=== PATIENT | male | born 1940 | race Caucasian/White ===

== ENCOUNTER → 2019-05-28 15:51 | Outpatient (CLI) | payer MEDICARE, OTHER, SELFPAY | PROVIDERS: Referring Provider Otolaryngology Otolaryngology/Facial Plastic Surgery; Visit Provider Otolaryngology Otolaryngology/Facial Plastic Surgery | DX: J02.9 Acute pharyngitis, unspecified (principal) | CPT/HCPCS: 87070; 87077; 87186 ==

== ENCOUNTER → 2019-05-31 08:15 | Outpatient (CLI) | payer MEDICARE, OTHER, SELFPAY ==
--- NOTE | 2019-05-31 08:23 | RAD_ITS ---
STUDY: X-RAY - ESOPHAGUS (BARIUM SWALLOW) WITH FLUOROSCOPY REASON FOR EXAM: Male, 79 years old. Right-sided throat irritation. TECHNIQUE: 12 view(s) of the esophagus were obtained following swallowing of barium. FLUOROSCOPY TIME (if supplied): (0:25) minutes/seconds COMPARISON: None. FINDINGS: There is no demonstrated esophageal foreign body. There is no demonstrated stricture or mucosal abnormality. Normal gastroesophageal junction, without a demonstrated hiatal hernia. The patient ingested a 12 mm tablet of barium without any difficulty. There is atherosclerotic tortuosity of the aortic arch and descending thoracic aorta. Normal visualized pulmonary parenchyma. Normal visualized osseous structures of the thorax. RAD/Esophagus Only IMPRESSION: Normal plain film x-ray examination (barium swallow) of the esophagus. Electronically Signed: Dereck Cruz, at 10:27 EST , Service support ,
== END ==
PROVIDERS: Family Provider Internal Medicine; PCP Internal Medicine; Referring Provider Otolaryngology Otolaryngology/Facial Plastic Surgery; Visit Provider Otolaryngology Otolaryngology/Facial Plastic Surgery
DX: R13.10 Dysphagia, unspecified (principal)
CPT/HCPCS: 74220

== ENCOUNTER → 2020-07-30 07:00 | Outpatient (CLI) | payer MEDICARE, OTHER, SELFPAY ==
[2020-07-23 10:30] VITALS: BMI 26.0
--- NOTE | 2020-07-30 07:04 | ECHOD_ITS ---
Reason For Study: SOB Procedure This was a 2D Doppler, Color Flow transthoracic echocardiogram. Myocardial strain analysis was performed in this exam to aid in the assessment of cardiac function. Exam performed in department. Left Ventricle Normal LV size. Left ventricular systolic function is normal. The estimated ejection fraction is 60 %. Stage 1 diastolic dysfunction. No regional wall motion abnormalities noted. Right Ventricle Normal RV size. Normal systolic function. Atria Normal left atrium. Normal right atrium. Mitral Valve Normal mitral valve. Mild (1+) mitral valve insufficiency. Tricuspid Valve Normal tricuspid valve. Mild tricuspid valve insufficiency. Pulmonary artery systolic pressure is 30 mmHg. Aortic Valve Trisinus/trileaflet aortic valve. Mild focal aortic valve calcification. Pulmonic Valve Normal pulmonic valve. Trivial pulmonic valve insufficiency. Great Vessels Normal aortic root. The pulmonary artery is normal size. Normal inferior vena cava. Pericardium/Pleural No pericardial effusion. MMode/2D Measurements & Calculations LVIDd: 4.1 cm IVSd: 1.0 cm Ao root diam: 3.6 cm LVIDs: 2.8 cm LVPWd: 1.1 cm RVDd: 3.1 cm FS: 31.9 % LAV(MOD-bp): 75.6 ml EDV(MOD-sp4): 124.1 ml SV(MOD-sp4): 68.8 ml LAV(MOD-bp) Indexed: 39.2 ml/m2 ESV(MOD-sp4): 55.3 ml LAV(MOD-sp2): 77.6 ml EF(MOD-sp4): 55.4 % LAV(MOD-sp4): 73.6 ml LA dimension(2D): 4.1 cm LA A4 area: 23.0 cm2 RA A4 area: 20.6 cm2 Doppler Measurements & Calculations MV E max zack: 62.2 cm/sec Lat Peak E' Zack: 7.2 cm/sec Med Peak E' Zack: 8.5 cm/sec MV A max zack: 87.1 cm/sec E/E' lat: 8.6 E/E' med: 7.3 MV E/A: 0.71 Ao V2 max: 177.6 cm/sec LV V1 max: 104.3 cm/sec PA V2 max: 101.9 cm/sec Ao max P.6 mmHg LV V1 max P.4 mmHg TR max zack: 261.6 cm/sec TR max P.4 mmHg Interpretation Summary Normal LV size. Left ventricular systolic function is normal. The estimated ejection fraction is 60 %. Stage 1 diastolic dysfunction. The global longitudinal strain is normal. The global longitudinal strain = -20.3 % (normal). Ordering Physician: Nicanor Mojica Referring Physician: Danay Silva M.D. Performed By: Marlene Allen RDCS
--- NOTE | 2020-07-30 16:49 | STRESSREP ---
Stress Test Report Exercise myocardial perfusion stress test. 80-year-old man with a history of hypertension, hyperlipidemia and premature ventricular complexes. Stress protocol: Resting KG demonstrates normal sinus rhythm with a rate of 69 bpm normal intervals are noted resting blood pressure is 150/76 mmHg. The patient exercised according to regular Mahin protocol for a total duration of 4 minutes and 15 seconds. The maximum heart rate attained was 136 bpm which was 95% of max impacted heart rate the maximum workload was 6.1 metabolic equivalents. At rest there were no ST or T wave changes noted suggest ischemia at peak exercise upsloping ST changes were noted with no meet the criteria for ischemia. The test was terminated due to lightheadedness. The peak blood pressure was 180/90 mmHg. Myocardial perfusion protocol. 11.2 mCi of technetium 99m sestamibi was injected at rest. The patient exercised according to regular Mahin protocol for 4 minutes and 15 seconds and at peak exercise 33.8 mCi of technetium 99m sestamibi was injected stress images were obtained stress and rest images were reconstructed and compared in the short axis vertical long horizontal long axis. Gated images were also obtained Perfusion SPECT analysis: Review of the stress images demonstrate normal uptake of tracer noted in all areas of the myocardium the resting images similarly demonstrate normal uptake of tracer noted in all areas of the myocardium. There is some diaphragmatic attenuation present. The above is not suggestive of an infarct. Gated SPECT analysis: The gated ejection fraction is 57% Conclusion: Exercise myocardial perfusion stress test with no evidence of ischemia at a low to moderate workload. No obvious ischemia noted.
== END ==
PROVIDERS: PCP Internal Medicine; Referring Provider Internal Medicine Cardiovascular Disease; Visit Provider Internal Medicine Cardiovascular Disease
DX: R06.00 Dyspnea, unspecified (principal); R06.02 Shortness of breath; R00.2 Palpitations; E78.5 Hyperlipidemia, unspecified
CPT/HCPCS: 78452; 93017; 93225; 93226; 93306; A9500; A4216

== ENCOUNTER → 2020-09-22 15:59 | Outpatient (CLI) | payer MEDICARE, OTHER, SELFPAY ==
[2020-09-10 11:14] VITALS: BMI 25.9
--- NOTE | 2020-09-22 16:10 | MRI_ITS ---
STUDY: MRI BRAIN WITH AND WITHOUT CONTRAST (ATTENTION INTERNAL AUDITORY CANALS - I.A.C.''s) REASON FOR EXAM: Male, 80 years old. LEFT EAR HEARING LOSS ; ATTN IAC TECHNIQUE: Standardized multiplanar fat and water weighted pulse sequences were obtained. 16ml IV Dotarem was administered for the contrast portion of the examination. COMPARISON: None. FINDINGS: Normal bilateral temporal bones. Normal bilateral internal auditory canals. There is no demonstrated intracanalicular or cisternal vestibular schwannoma (acoustic neuroma). There is no enhancement of the bilateral VIIth or VIIIth cranial nerves. Normal bilateral cochlea, vestibules and semicircular canals. There is mild cerebral atrophy with widening of the extra-axial spaces and ventricular dilatation. Normal white matter tracts of the supratentorial brain. Normal bilateral basal ganglia. Normal thalami. Normal flow voids within the major intracranial circulation suggesting patency by spin echo criteria. Normal venous enhancement. There is no enhancing intra-axial or extra-axial abnormality. There is no extra-axial fluid accumulation. Normal sella turcica, pituitary gland, infundibular stalk, optic chiasm and hypothalamus. Normal tectal plate and pineal gland. Normal midbrain, anita and medulla. Normal cerebellum. MRI/Brain W/WO Contrast IMPRESSION: There is no demonstrated intracanalicular or cisternal vestibular schwannoma (acoustic neuroma). Electronically Signed: Linda Leo MD at 15:50 EDT Tel , Service support ,
[2020-09-22 16:26] LABS: CREATININE FINGERSTICK 0.8 mg/dL (0.70-1.30); EGFR FINGERSTICK > 60.0000 mL/min (>60)
== END ==
PROVIDERS: PCP Internal Medicine; Referring Provider Otolaryngology; Visit Provider Otolaryngology
DX: H91.92 Unspecified hearing loss, left ear (principal)
CPT/HCPCS: 70553; A9575

== ENCOUNTER → 2020-12-10 06:28 | Outpatient (CLI) | payer MEDICARE, OTHER, SELFPAY ==
[2020-12-02 08:17] VITALS: BMI 25.5
--- NOTE | 2020-12-10 06:32 | MRI_ITS ---
STUDY: MRI LUMBAR SPINE WITH AND WITHOUT CONTRAST REASON FOR EXAM: Male, 80 years old. pain, h/o lumbar surgery TECHNIQUE: Standardized fat and water weighted pulse sequences were obtained in the sagittal and axial planes. IV 15cc dotarem was administered for the contrast portion of the examination. COMPARISON: X-ray 12/01/2020 FINDINGS: T12-L1: Normal endplates. Normal disc height, hydration and morphology. Normal bilateral facet joints. Normal central canal and bilateral lateral recesses. Normal bilateral intervertebral neural foramina. Normal lumbar lordosis. There is no substantial scoliosis. Normal conus medullaris that terminates at the T12/L1. Chronic mild compression fracture of L3 with concavity the superior endplate but no retropulsion into the spinal canal. L1-2: Normal endplates. Normal disc height, hydration and morphology. Normal bilateral facet joints. Normal central canal and bilateral lateral recesses. Normal bilateral intervertebral neural foramina. L2-3: Mild bilateral facet hypertrophy and moderate ligament flavum hypertrophy. Mild bilobed disc protrusion produces moderate spinal stenosis with moderate bilateral lateral recess stenosis with abutment of the L3 nerve roots and mild bilateral neural foraminal stenosis. L3-4: Mild bilateral facet hypertrophy and moderate ligament flavum hypertrophy. Moderate bilobed disc protrusion produces a moderate spinal stenosis with moderate bilateral lateral recess stenosis with abutment of the L4 nerve roots bilaterally and moderate bilateral neural foraminal stenosis. L4-5: Suspect right laminotomy. Mild bilateral facet hypertrophy and moderate ligament flavum hypertrophy. Mild broad disc protrusion with a central annular tear produces mild spinal stenosis with mild bilateral lateral recess stenosis and mild bilateral neural foraminal stenosis. L5-S1: Mild bilateral facet hypertrophy and ligament flavum hypertrophy. Mild broad disc protrusion produces moderate spinal stenosis with moderate bilateral lateral recess stenosis with abutment of the S1 nerve roots bilaterally and moderate right neural foraminal stenosis and mild left neural foraminal stenosis. Normal visualized sacral ala. Normal visualized paraspinous soft tissue structures. There is no demonstrated abnormal enhancement. MRI/Spine Lumbar W/WO Contrast IMPRESSION: Multilevel degenerative changes, as described above. Electronically Signed: Elbert Roca MD at 9:29 EDT Tel , Service support ,
[2020-12-10 07:00] LABS: CREATININE FINGERSTICK < 0.6 mg/dL (0.70-1.30); EGFR FINGERSTICK > 60.0000 mL/min (>60)
== END ==
PROVIDERS: PCP Internal Medicine; Referring Provider Orthopaedic Surgery; Visit Provider Orthopaedic Surgery
DX: Z01.812 Encounter for preprocedural laboratory examination (principal); M54.17 Radiculopathy, lumbosacral region; Z98.890 Other specified postprocedural states; S32.030A Wedge compression fracture of third lumbar vertebra, initial encounter for closed fracture
CPT/HCPCS: 72158; A9575

== ENCOUNTER 2021-04-02 11:00 | Outpatient (RCR) | payer MEDICARE, OTHER, SELFPAY ==
--- NOTE | 2021-03-04 13:57 | HP.PTEVAL_ITS ---
Patient's Visit Information BRE QUIGLEY is a 81 year old M referred to Physical Therapy by Dr. Ren Boudreaux DO with a diagnosis of LUMBOSACRAL SPRAIN/STRAIN. Date of Evaluation: 03/04/21 Physical Therapist: Janeth Richardson PT, Cert MDT - Visit Plan Frequency: 2-3x /Week Duration: 4-6 Weeks Plan: CONSIDER US TO LOW BACK. POSTURE CORRECTION/STRENGTHENING, INSTRUCTION IN APPROPRIATE BODY MECHANICS AND ACTIVITY MODIFICATIONS. DLS STARTING WITH A NEUTRAL SPINE PROGRESSING ROM TOLERATED. KYLE LE ROM, STRETCHING AND STRENGTHENING. HEP INSTRUCTION. - Subjective Work/Leisure: RETIRED. Disability: NO. Present symptoms: KYLE LOW BACK PAIN. MY WHOLE BACK HURTS SOMETIMES. RIGHT THIGH, LEG, AND FOOT NUMBNESS AND TINGLING. NO L LE SX'S. Present since: 51 YEARS AGO. Pain Scale: WORST 8/10, LEAST 0/10. Currently: 0/10. 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 EVENTUALLY IT HEALED ITSELF TO A POINT BUT SOME SX'S HAVE BEEN THERE EVER SINCE THEN. JUST INTERMITTENT LBP UNTIL 2009. WENT TO PT IN 2009 FOR 2-3 WKS - WAS DOING A HOME EX WHEN HE SUDDENLY GOT A SEVERE SHARP PAIN DOWN HIS LEG INTO HIS KNEE AND INTO HIS FOOT. MRI REVEALED A LUMBAR HNP. Symptoms at onset: LOW BACK PAIN. [address] RIVAS AND IT HELPED BUT WASN'T A 100% CURE. INTERMITTENT RIGHT KNEE PAIN SINCE THEN. GETS SHARP KNEE PAIN AT TIMES. ABOUT 5 MONTHS AGO FOR 1-2 WEEKS DID A LOT OF YARD WORK AND DIDN'T REALIZE HE WAS OVER-STRESSING HIS BODY. ONE MORNING HE WOKE UP AND COULDN'T GET OUT OF BED AND HAD MUSCLE SPASMS IN BACK AND CHEST AND ALL OVER - VERY SEVERE PAIN - COULDN'T GET OUT OF BED. WAS PRESCRIBED M.RELAXERS AND PREDNISONE. HAD TO SLEEP IN RECLINER. THE PAIN HAS GOT A LITTLE BETTER. Worse: ACTIVITY. EVEN GENTLY ACTIVITY PROVOKES ACHING THAT CAN BECOME SEVERE. STATES THAT IF HE DOESN'T SIT DOWN IT BECOMES SEVERE QUICKLY. Better: LYING DOWN. SITTING DOWN. Disturbed sleep: SOMET IMES - I FIND MYSELF TOSSING AND TURNING. Treatment this episode: PREDNISONE, M. RELAXER, MALOXACAM. Coughing/sneezing/straining: NEGATIVE. Gait: IT IS GETTING MUCH BETTER. STATES HE INITIALLY COULDN'T WALK 100 FEET ABOUT 5 MONTHS AGO BUT NOW CAN SOMETIMES WALK 1.5 TO 2 MILES A COUPLE TIMES A WEEK. STATES HIS WALKING POSTURE IS GETTING BACK TO CLOSE TO NORMAL. STATES HE STILL CAN'T WALK FAST HE WAS BEFORE THIS FLARE UP. Difficulty initiating urinatin: NO. Accidents: NO. Unexplained weight loss: NO. Imaging: RECENT X-RAYS AND MRI OF LOW BACK - SEE [facility] EMR - REVIEWED BY THIS PT. RAD/Lumbar Spine 2 or 3 Views. IMPRESSION: 1. Moderate compression fracture of L3 which may be acute, subacute, or. chronic. Clinical correlation and MRI may be useful. 2. Mild dextroscoliosis with degenerative disc disease. . Electronically Signed: Elbert Roca MD. at 9:21 EDT. FINDINGS: T12-L1: Normal endplates. Normal disc height, hydration and morphology. Normal bilateral facet joints. Normal central canal and bilateral lateral. recesses. Normal bilateral intervertebral neural foramina. Normal lumbar lordosis. There is no substantial scoliosis. Normal conus. medullaris that terminates at the T12/L1. Chronic mild compression. fracture of L3 with concavity the superior endplate but no retropulsion. into the spinal canal. L 1-2: Normal endplates. Normal disc height, hydration and morphology. Normal bilateral facet joints. Normal central canal and bilateral lateral. recesses. Normal bilateral intervertebral neural foramina. L2-3: Mild bilateral facet hypertrophy and moderate ligament flavum. hypertrophy. Mild bilobed disc protrusion produces moderate spinal. stenosis with moderate bilateral lateral recess stenosis with abutment of. the L3 nerve roots and mild bilateral neural foraminal stenosis. L3-4: Mild bilateral facet hypertrophy and moderate ligament flavum. hypertrophy. Moderate bilobed disc protrusion produces a moderate spinal. stenosis with moderate bilateral lateral recess stenosis with abutment of. the L4 nerve roots bilaterally and moderate bilateral neural foraminal. stenosis. L4-5: Suspect right laminotomy. Mild bilateral facet hypertrophy and. moderate ligament flavum hypertrophy. Mild broad disc protrusion with a. central annular tear produces mild spinal stenosis with mild bilateral. lateral recess stenosis and mild bilateral neural foraminal stenosis. L5-S1: Mild bilateral facet hypertrophy and ligament flavum hypertrophy. Mild broad disc protrusion produces moderate spinal stenosis with moderate. bilateral lateral recess stenosis with abutment of the S1 nerve roots. bilaterally and moderate right neural foraminal stenosis and mild left. neural foraminal stenosis. Normal visualized sacral ala. Normal visualized paraspinous soft tissue structures. There is no demonstrated abnormal enhancement. . MRI/Spine Lumbar W/WO Contrast. IMPRESSION: Multilevel degenerative changes, as described above. . Electronically Signed: Elbert Roca MD. at 9:[address] IAN BOUDREAUX TOLD HIM HE DID NOT SEE ANYTHING OPERABLE ON HIS MRI. PMH/Recent major surgery: HTN, EYE PROBLEMS. OTHER: PATIENT REPORTS THAT IT IS IMPORTANT TO NOTE THAT HE HAD A RE-OCCURANCE OF THE SAME RIGHT KNEE AND LE SX'S WITH THIS FLARE UP THAT HE HAD BEFORE HIS BACK SURGERY IN 2009. CHIEF COMPLAINT AT HIS POINT IS LBP THAT IS EXTREMELY LIMITING HIS ACTIVITY. STATES HE CAN LIVE WITH THE LEG PAIN. - Objective Sitting/Standing Posture: POOR. INCREASED TRUNK FLEXION. RIGHT SHLD LEVEL HIGHER THAN LEFT. LEFT ILIAC CREST HIGHER THAN RIGHT. FH. RS'S. Lordosis: DECREASED. Active Correction of posture: NE. ONLY ABLE TO PARTIALLY CORRECT. Other Observations: INDEP GAIT INTO PT WITHOUT ANY ASSISTIVE DEVICES OR LOB BUT DECREASED CADANCE AND INCREASED TRUNK FLEXION. DECREASED KYLE STRIDE LENGTH. Motor deficit: KYLE LE STRENGTH IS GROSSLY 5/5 WITH MMT'ING EXCEPT HIPS GRADED 4/5. Sensory deficit: KYLE LE LIGHT TOUCH SENSATION IS GROSSLY INTACT AND SYMMETRICAL. ROM deficit: TIGHT KYLE HS'S RIGHT > LEFT. TIGHT KYLE HIP FLEXORS. Reflexes: 2/3 KYLE LE'S. Dural Signs: NEGATIVE KYLE LE'S. Lumbar mvmt loss: flex - MOD. ext - ALINA. R SG - MOD TO ALINA. L SG - MOD TO ALINA. PATIENT C/O INCREASED SORENESS WITH LUMBAR ROM TESTING ALL PLANES BUT NOTHING DRAMATIC. Core strength: POOR. Palpation: NO ACUTE TENDERNESS WITH PALPATION OF THE THO RACIC SPINE, LUMBAR SPINE, SACRAL OR PELVIC AREAS. INCREASED MUSCLE TONE OF PARASPINALS THROUGHOUT. RIGHT KNEE IS NOT TENDER EITHER. OTHER: THIS PT PROCEEDED CAREFULLY AND NON AGRESSIVELY WITH ALL TESTING DUE TO PATIENTS REPORTS OF POOR TOLERANCE TO LIGHT ACTIVITY. PATIENT WAS COOPERATIVE WITH ALL TESTING. PATIENT IS PLEASANT, COOPERATIVE AND VERY TALKATIVE AND REALLY WANTED TO GIVE THIS PT A LOT OF INFORMATION TODAY. - Balance/Special Test Scores Oswestry Low Back Score: 14 - Goals Goal 1:: DECREASE C/O BACK AND KYLE LE SX'S. Goal Time Frame: 4-6 Weeks Goal 2:: IMPROVE PERSONAL CARE, LIFTING, WALKING, SITTING, STANDING, SLEEP AND HOMEMAKING FUNCTION INCLUDING YARD WORK. Goal Time Frame: 4-6 Weeks Goal 3:: INSTRUCT IN PROPHYLAXIS Goal Time Frame: 4-6 Weeks - Anticipated Interventions Patient/Client Instruction: Educate patient on: Condition, Plan of Care, Risk Factors For the Purpose of:: To improve self management Therapeutic Exercise to Include: Strength training, Body mechanics, Postural training, Flexibilty training, Gait and locomotor training, Neuromotor development, In an aquatic setting, Dynamic Lumbar Stabilization For the Purpose of:: To decrease pain, To improve muscle performance and motor function, To increase tolerance to activity/condition/position, To improve ability of physical actions for home/community/work/leisure, To improve gait and locomotor functions Thermo therapy (hot pack): Yes Ultrasound (thermal/non thermal): Yes For the Purpose of:: To decrease pain, To improve nutrient delivery to tissue Thank you for the opportunity to evaluate your patient. For Medicare and Medicare HMO plans, please review the plan of care and approve it. It will need to be FAXED BACK to us at [phone] for Medicare purposes. For Medicare only, by signing this I certify the plan of care. Please let me know if there are questions or concerns regarding this plan of care. Physician Signature: ___Date:
--- NOTE | 2021-04-02 11:20 | HP.PT.NRP ---
BRE QUIGLEY was seen in my office for initial evaluation on 03/04/21. The following Plan of Care was established for this patient: Initial Frequency: 2-3x /Week Initial Duration: 4-6 Weeks Patient/Client Instruction: Educate patient on: Condition, Plan of Care, Risk Factors For the Purpose of:: To improve self management Therapeutic Exercise to Include: Strength training, Body mechanics, Postural training, Flexibilty training, Gait and locomotor training, Neuromotor development, In an aquatic setting, Dynamic Lumbar Stabilization For the Purpose of:: To decrease pain, To improve muscle performance and motor function, To increase tolerance to activity/condition/position, To improve ability of physical actions for home/community/work/leisure, To improve gait and locomotor functions Thermo therapy (hot pack): Yes Ultrasound (thermal/non thermal): Yes For the Purpose of:: To decrease pain, To improve nutrient delivery to tissue This patient was last seen in our office . Pertinent comments regarding their Physical therapy will appear below: This patient has not returned to Physical Therapy and is appropriate to return to MD for further follow-up as needed. At this point I will be discontinuing this patient from physical therapy. I would be happy to see this patient again in the future if found appropriate by the physician. Thank you! Janeth Richardson, PT, Cert MDT Balance/Gait/Functional tests - Balance/Special Test Scores Oswestry Low Back Score: 14
== END 2021-04-02 19:00 | disposition home or self-care (01) ==
LOC: PT 11:00
PROVIDERS: PCP Internal Medicine; Visit Provider Orthopaedic Surgery
DX: S33.5XXD Sprain of ligaments of lumbar spine, subsequent encounter (principal); S39.012D Strain of muscle, fascia and tendon of lower back, subsequent encounter; X58.XXXD Exposure to other specified factors, subsequent encounter
CPT/HCPCS: 97035; 97110; 97162; 97530

== ENCOUNTER → 2022-07-16 | Outpatient (CLI) | payer MEDICARE, OTHER, SELFPAY ==
--- NOTE | 2022-07-16 06:49 | MRI_ITS ---
PROCEDURE: MRI LUMBAR SPINE WITH AND WITHOUT CONTRAST REASON FOR EXAM: Male, 82 years old. Low back pain TECHNIQUE: Standardized fat and water weighted pulse sequences were obtained in the sagittal and axial planes. COMPARISON: MRI of the lumbar spine dated December 10, 2020. X-ray of the lumbar spine dated December 01, 2020 FINDINGS: There are acute mild to moderate compression fractures of the T11, L1, L2, and L4 vertebral bodies. There is 40-50% loss of height of the affected vertebral bodies, mild marrow edema, and linear fracture lines primarily in the proximal aspects of vertebral bodies with minimal cortical offset. Mild retropulsion is present at the L1 level, contributing to mild central canal stenosis. Redemonstration of a chronic compression deformity of the L3 vertebral body. Reactive enhancement is present in the acute fracture sites of the vertebral bodies. There are no malignant lesions on the current study. Normal lumbar lordosis. There is no substantial scoliosis. Normal conus medullaris that terminates at the T12-L1 level. T12-L1: Normal endplates. Normal disc height, hydration and morphology. Normal bilateral facet joints. Normal central canal and bilateral lateral recesses. Normal bilateral intervertebral neural foramina. L1-2: Normal endplates. Normal disc height, hydration and morphology. Normal bilateral facet joints. Normal central canal and bilateral lateral recesses. Normal bilateral intervertebral neural foramina. L2-3: Normal endplates. Normal disc height. Diffuse disc desiccation. Normal bilateral facet joints. Normal central canal and bilateral lateral recesses. Normal bilateral intervertebral neural foramina. L3-4: Normal endplates. Normal disc height and morphology. Diffuse disc desiccation. Moderate facet joint ligament of flavum hypertrophy contribute to mild central canal and bilateral lateral recess stenosis. Mild bilateral foraminal stenosis. L4-5: Right laminotomy defect. Diffuse disc desiccation with mild disc space narrowing. Shallow left of midline disc protrusion. Moderate bilateral facet joint hypertrophy and moderate bilateral foraminal stenosis with nerve root impingement. Normal central canal and bilateral lateral recesses. L5-S1: Normal endplates. Diffuse disc desiccation with mild posterior disc space narrowing and minimal annular bulging. Mild endplate spurring. Mild facet joint hypertrophy. Normal central canal and bilateral lateral recesses. Normal bilateral intervertebral neural foramina. Normal visualized sacral ala. There is moderate paraspinal muscular atrophy. MRI/Spine Lumbar W/WO Contrast IMPRESSION: 1. Acute mild to moderate compression fractures of the T11, L1, L2, and L4 vertebral bodies. There is 40-50% loss of height of the affected vertebral bodies, mild marrow edema, and linear fracture lines primarily in the proximal aspects of vertebral bodies with minimal cortical offset. Mild retropulsion is present at the L1 level, contributing to mild central canal stenosis. 2. Redemonstration of a chronic compression deformity of the L3 vertebral body. 3. Multilevel degenerative changes, as described above. Electronically Signed: Sha Santana MD at 9:14 EST ,
[2022-07-16 07:05] LABS: CREATININE FINGERSTICK < 0.9 mg/dL (0.70-1.30); EGFR FINGERSTICK > 60.0000 mL/min (>60)
== END | disposition home or self-care (01) ==
PROVIDERS: PCP Internal Medicine; Referring Provider Internal Medicine; Visit Provider Internal Medicine
DX: M51.36 Other intervertebral disc degeneration, lumbar region (principal); C88.0 Waldenstrom macroglobulinemia; G89.29 Other chronic pain; S32.030S Wedge compression fracture of third lumbar vertebra, sequela; X58.XXXS Exposure to other specified factors, sequela
CPT/HCPCS: 72158; A9575

== ENCOUNTER 2023-02-24 11:37 | Inpatient (IN) | payer MEDICARE, OTHER, SELFPAY ==
[2023-02-24] VITALS (23 sets, daily range): BP systolic 112–209; BP diastolic 66–121; PULSE 65–93; RESP 11–23; TEMP 36.6–37.3; O2SAT 97–100; BMI 24.5; BMI 22.8
--- NOTE | 2023-02-24 11:46 | ED.VIS.CHEST ---
HPI History of Present Illness Chief Complaint: Chest Other [facility] Medical History Actinic keratosis Anemia BPH w/o urinary obs/LUTS Chronic allergic rhinitis Compression fracture of third lumbar vertebra Esotropia Essential hypertension GERD (gastroesophageal reflux disease) Hyperlipidemia Intermittent palpitations Lumbosacral radiculopathy at L5 Multiple premature ventricular complexes Osteoarthritis Seborrheic keratoses Sprain of ligaments of lumbar spine Suspected glaucoma of both eyes Home Medications aspirin 81 mg tablet,delayed release (Adult Low Dose Aspirin) 81 mg PO DAILY 07/18/20 [History Last Taken Unknown] loratadine 10 mg tablet 10 mg PO DAILY 07/18/20 [History Last Taken Unknown] multivitamin 1 tab PO DAILY 07/18/20 [History Last Taken Unknown] acetaminophen 500 mg tablet 1,000 mg PO QHS PRN 07/23/20 [History Last Taken Unknown] latanoprost 0.005 % eye drops ml ophthalmic (eye) 02/23/21 [History Last Taken Unknown] ferrous sulfate 325 mg (65 mg iron) tablet (Feosol) 325 mg PO DAILY 01/26/22 [History Last Taken Unknown] losartan 50 mg tablet 25 mg PO DAILY 01/26/22 [History Last Taken Unknown] Allergy/AdvReac Type Severity Reaction Status Date / Time No Known Allergies Allergy Verified 02/24/23 11:37 Family History Father Colon cancer Mother Heart disease Surgical History H/O foot surgery H/O hernia repair History of back surgery Social History household members: spouse housing: house Smoking Status: Former smoker pack-years: 8 how long ago did patient quit smokin years ago alcohol intake: current alcohol intake frequency: 0-2 drinks per day Alcohol type: beer substance use type: does not use what type of physical activity do you participate in: other details: gardening, wood working, household repairs do you feel safe at home: Yes EXAM Physical Exam Const Vital Signs: 02/24/23 11:38 02/24/23 11:47 02/24/23 11:48 Temperature 98 F Temperature Source Temporal Pulse Rate 82 88 Respiratory Rate 14 14 Respiratory Effort Normal Non-Labored Blood Pressure 209/77 H 189/111 H Blood Pressure Mean 121 137 Pulse Ox 100 98 Oxygen Delivery Method Room Air Room Air 02/24/23 11:52 02/24/23 11:53 02/24/23 12:02 Temperature Temperature Source Pulse Rate 93 Respiratory Rate 23 H Respiratory Effort Blood Pressure 189/111 H 188/102 H Blood Pressure Mean Pulse Ox 98 Oxygen Delivery Method Room Air 02/24/23 12:08 Temperature 98 F Temperature Source Oral Pulse Rate 93 Respiratory Rate 20 H Respiratory Effort Blood Pressure 188/121 H Blood Pressure Mean 143 Pulse Ox 99 Oxygen Delivery Method Room Air MDM MDM MDM Narrative Medical decision making narrative: HISTORY OF PRESENT ILLNESS: 83-year-old male here for epigastric/chest pain. States has been ongoing for 3 to 4 weeks. He states pain is worse over last 3 days. States he exertional pain shortness of breath. Denies history of blood clots aortic pathology. Denies any bleeding diathesis. He does not has history of hypertension, hyperlipidemia he is a non-smoker denies any drug use. REVIEW OF SYSTEMS: Pertinent positives: Chest pain, epigastric abdominal pain, shortness of breath Pertinent negatives: Syncope PHYSICAL EXAM: Nursing triage notes reviewed, Vital signs reviewed Constitutional: please see mdm HENT: MMM Eyes: Pupils equal round and reactive to light, Extraocular muscles intact Neck: No stridor, no JVD, full neck ROM Lungs: Clear to auscultation, No wheezing or rales. No increased work of breathing, no conversational dyspnea, no accessory muscle use, no nasal flaring. No respiratory distress noted Heart: Regular rate and rhythm, No murmurs, No rubs and No gallops, 2+ distal pulses (radial, femoral, posterior tibial) in all extremities Abdomen: Soft, there is no tenderness, rigidity, rebound or guarding, no obvious peritoneal signs, no palpable pulsatile abdominal masses, no auscultated abdominal bruit : No CVAT Extremities: No edema Neuro: No focal neurological deficits, cranial nerves II through XII intact, 5/5 strength in all extremities. Intact sensation to light touch in all extremities, 2+ reflexes bilateral patella tendons. Normal gait. No ataxia. Skin: No rash or lesions noted MEDICAL DECISION MAKING: Chief Complaint: Chest pain External records reviewed: Prior imaging studies reviewed: Echocardiogram reviewed from 2020 shows ejection fraction of 60% Factors affecting care: Hyperlipidemia, hypertension, PVCs, GERD Social determinants of health: no elderly History obtained from others: Consults: Cardiology, internal medicine ALL IMAGES (IF OBTAINED) HAVE BEEN PERSONALLY REVIEWED AND INTERPRETED BY MYSELF. MDM Narrative: Patient was initially hypertensive otherwise hemodynamically stable, afebrile and nontoxic-appearing. Exam without focal cardiopulmonary abnormalities. There are no pulse deficits or focal weakness or numbness. Patient's initial EKG was concerning for an anterior STEMI with inferior depressions and elevations in V2 and V3. Discussed immediately with cardiology Dr. Kessler who agreed the patient is suffering from likely subacute STEMI and will proceed to the catheterization laboratory. Patient had no bleeding diathesis that would preclude him from receiving antiplatelet and anticoagulant medication. He was given heparin, Brilinta and Plavix here in the ED given nitroglycerin for pain and blood pressure control. He was transported to the catheterization laboratory in stable condition. I also spoke with the hospitalist. The patient and/or family, caregivers express understanding. The patient and/or family, caregivers agrees with the plan. Shared decision making: I will have a discussion with the patient and or visitors regarding risk/benefits of further testing or admission. They will be made aware of of the risk/benefits inherent in this decision they will be given the opportunity to voice understanding. Total critical care time today provided was at least 35 minutes. This excludes separately billable procedures. Critical care time (if documented) is secondary to the patient having high probability of clinically significant/life threatening deterioration in the patient's condition which required my urgent intervention. Impression: Acute STEMI History of hypertension History of lymphoma History of hyperlipidemia Disposition: Catheterization lab Lab Data Labs: Laboratory Results - last 24 hr 02/24/23 11:55 WBC 13.0 H RBC 4.21 L Hgb 14.3 Hct 42.7 MCV 101.4 H MCH 34.0 H MCHC 33.5 RDW Std Deviation 51.3 H RDW Coeff of Saulo 13.6 Plt Count 238 MPV 10.7 Immature Gran % (Auto) 0.400 Neut % (Auto) 61.7 Lymph % (Auto) 28.4 Roane % (Auto) 8.5 Eos % (Auto) 0.5 Baso % (Auto) 0.5 Absolute Neuts (auto) 8.1 H Absolute Lymphs (auto) 3.70 Nucleated RBC % 0 Total Bilirubin 0.80 Direct Bilirubin 0.20 AST 24 ALT 25 Alkaline Phosphatase 54 Total Protein 7.9 Albumin 3.7 Globulin 4.2 Discharge Plan Disposition Disposition: Acute Care [facility] Discharge Date/Time: 02/24/23 12:14
--- NOTE | 2023-02-24 11:53 | NURSING ---
STEMI ALERT CALLED
[2023-02-24] MEDS: Aspirin 81 MG TAB.CHEW 324 MG PO (11:57)
[2023-02-24] MEDS: TICAGRELOR 90 MG TABLET 180 MG PO (11:57)
[2023-02-24] MEDS: Heparin Injection (Vial) 5,000 UNIT/ML VIAL 4000 UNIT IV (11:57)
[2023-02-24] MEDS: Nitroglycerin SL (ED/IMG/CATH) 0.4 MG TABLET SL (12:02)
--- NOTE | 2023-02-24 12:02 | NURSING ---
PODIATRIC [employer] SPECIALIST DR ENE LUGO
[2023-02-24 12:06] LABS: Absolute Neutrophil Count 8.1 X10^3/uL (2.0-7.7); Basophil# 0.06 X10^3/uL; Basophil% 0.5 % (0-1); Eosinophil# 0.06 X10^3/uL; Eosinophils% 0.5 % (0-5); Hematocrit 42.7 % (40-54); Hemoglobin 14.3 g/dL (13.0-16.5); Lymphocyte % 28.4 % (19-41); Mean Corp Hgb Conc 33.5 g/dL (32-36); Mean Corpuscular Volume 101.4 fL (80-94); Mean Platelet Vol. 10.7 fl (6.2-12.0); Monocyte# 1.11 X10^3/uL; Monocyte% 8.5 % (0-10); NRBC Flagged by Analyzer 0 % (0-5); Neutrophil # 8.05 X10^3/uL (2.7-7.7); Neutrophil % 61.7 % (47-70); Platelet Count 238 K/mm3 (150-450); RBC Distribution Width CV 13.6 % (11.6-14.6); RBC Distribution Width SD 51.3 fl (35.1-43.9); Red Blood Count 4.21 M/mm3 (4.6-6.2)
[2023-02-24 12:25] LABS: AST(SGOT) 24 U/L (15-37); Alanine Aminotransfer ALT/SGPT 25 U/L (16-61); Albumin, Serum 3.7 g/dL (3.2-5.0); Alkaline Phosphatase 54 U/L (45-117); Globulin 4.2 g/dL (2.2-4.2); Protein, Total 7.9 g/dL (6.4-8.2)
[2023-02-24 12:29] LABS: Anion Gap 8 (5-15); BUN 19 mg/dL (7-18); BUN/Creat Ratio 20.8 RATIO (10-20); Calcium,Total 9.8 mg/dL (8.5-10.1); Chloride 107 mmol/L (98-107); Creatinine, Serum 0.91 mg/dL (0.70-1.30); EST Glomerular Filtration Rate 85 mL/min (>60); Est Glom Filt Rate - Afr Amer 102 mL/min (>60); Estimated Creatinine Clearance 59.52 ml/min; Glucose 108 mg/dL (74-106); Lipase 74 U/L (13-75); Potassium 3.9 mmol/L (3.5-5.1); Sodium Level 138 mmol/L (136-145); Troponin-I HS (w/2H Reflex) 425 pg/mL (3.0-78.0)
--- NOTE | 2023-02-24 12:50 | ECHOD_ITS ---
Reason For Study: S/P ME Procedure This was a 2D Doppler, Color Flow transthoracic echocardiogram. Exam performed portable in ICU/CCU. Left Ventricle Normal LV size. The estimated ejection fraction is 45-50 %. Stage 2 diastolic dysfunction. Hypokinesis of the apex and anterior wall. Right Ventricle Normal RV size. Normal systolic function. Atria The left atrium is mildly enlarged. Normal right atrium. No doppler evidence for ASD. Mitral Valve There is no mitral valve stenosis. Mild (1+) mitral valve insufficiency. Tricuspid Valve There is no tricuspid stenosis. Trivial tricuspid valve insufficiency. Unable to estimate RV systolic pressure due to insufficient tricuspid regurgitant envelope. Aortic Valve Moderate diffuse aortic valve thickening. Mild aortic stenosis. No aortic valve insufficiency. Pulmonic Valve There is no pulmonic valvular stenosis. No pulmonic valve insufficiency. Great Vessels Normal aortic root. Pericardium/Pleural No pericardial effusion. MMode/2D Measurements & Calculations LVIDd: 5.1 cm IVSd: 0.92 cm LVOT diam: 2.1 cm LVIDs: 3.2 cm LVPWd: 1.0 cm LVOT area: 3.6 cm2 RVDd: 3.6 cm FS: 37.6 % Ao root diam: 3.6 cm LAV(MOD-bp): 78.5 ml LVAd ap4: 36.4 cm2 LAV(MOD-bp) Indexed: 43.2 ml/m2 LVLd ap4: 8.8 cm LAV(MOD-sp2): 81.2 ml EDV(MOD-sp4): 120.3 ml LAV(MOD-sp4): 73.2 ml EDV(sp4-el): 127.8 ml LVAs ap4: 21.2 cm2 LVLs ap4: 7.7 cm ESV(MOD-sp4): 46.2 ml ESV(sp4-el): 49.5 ml EF(MOD-sp4): 61.6 % EF(sp4-el): 61.3 % LVAd ap2: 34.6 cm2 SV(MOD-sp4): 74.2 ml SV(MOD-sp2): 66.3 ml LVLd ap2: 8.8 cm EDV(MOD-sp2): 112.4 ml EDV(sp2-el): 116.1 ml LVAs ap2: 20.6 cm2 LVLs ap2: 7.6 cm ESV(MOD-sp2): 46.1 ml ESV(sp2-el): 47.3 ml EF(MOD-sp2): 59.0 % SV(sp4-el): 78.4 ml LA dimension(2D): 4.2 cm LA A4 area: 21.0 cm2 RA A4 area: 15.8 cm2 Doppler Measurements & Calculations Lat Peak E' Zack: 4.7 cm/sec Med Peak E' Zack: 6.8 cm/sec MV V2 max: 75.1 cm/sec MV max P.3 mmHg MV V2 mean: 43.3 cm/sec MV mean P.87 mmHg MV V2 VTI: 21.5 cm MVA(VTI): 4.4 cm2 Ao V2 max: 232.3 cm/sec LV V1 max: 119.4 cm/sec SV(LVOT): 94.5 ml Ao max P.6 mmHg LV V1 max P.7 mmHg Ao V2 mean: 184.6 cm/sec LV V1 mean P.5 mmHg Ao mean P.5 mmHg LV V1 mean: 90.0 cm/sec Ao V2 VTI: 50.3 cm LV V1 VTI: 26.3 cm AV (velocity ratio): 0.52 MALLIKA(I,D): 1.9 cm2 MALLIKA(V,D): 1.8 cm2 ECHO/Echo Complete Interpretation Summary The estimated ejection fraction is 45-50 %. Stage 2 diastolic dysfunction. The left atrium is mildly enlarged. Mild aortic stenosis. Mild (1+) mitral valve insufficiency. Ordering Physician: Annamaria Kessler Referring Physician: Danay Silva Performed By: Анна Das, FALLON, RVT
--- NOTE | 2023-02-24 13:14 | CRPHASE1_ITS ---
Patient Communication Patient Information Former Patient:: Phase I PHII Cardiac Rehab Discussed with Patient:: Yes Guide to Cardiac Rehab Given to Patient:: Yes Cardiac Rehab Facility Choice List Given to Patient:: Yes Communication to Cardiac Rehab Services Account Manager:: Annamaria Kessler Sessions:: 36 sessions - 3 days/wk, 12 weeks Medical/Surgical History Medical History NE:: Yes Angina:: Yes CAD:: Yes Congestive Heart Failure: Cardiomyopathy:: No Valve Disease/Replacement:: No Pulmonary:: No COPD:: No Asthma:: No RADHA:: No Diabetes:: No Diabetes Type I:: No Diabetes Type II:: No Hypertension:: Yes Dyslipidemia:: Yes CVA/TIA: GERD:: Yes Cancer:: No Renal:: No Thyroid:: No Surgical History CABG: No ICD:: No Pacemaker:: No Cardiac Rehabilitation Info Program Information Cardiac Rehabilitation Program Information: Cardiac Rehab The cardiac rehab team at [facility] consists of highly skilled exercise physiologists, nurses, respiratory therapists and physicians working together with you. Our purpose is to help you have a full recovery and achieve the goals you set for yourself. Over the years many of our patients have returned to activities they assumed they would never do again! We can help restore your confidence and motivation to make lifestyle changes that can have a significant impact on your health and quality of life! We can help answer questions and concerns you may have about exercise, lifestyle, medications, diet, stress and anxiety which are common following a hospitalization. WE monitor ECG and vital signs during exercise and discuss your progress with you and report to your physician(s). Cardiac Rehab is proven to help reduce readmissions, improve functional capacity and lower recurrence of problems with your heart. Our Cardiac Rehab program is Certified by the [place] [employer] Pulmonary [employer] (AACVPR) and Accredited by the [place] [employer] through our [facility]. You can contact us at . We invite you to call us with your questions or to get started in our program. If you have other questions or concerns be sure to ask your physician/provider during your follow-up visit. WE look forward to seeing you!
--- NOTE | 2023-02-24 13:16 | CRPH1.INSTRU ---
General Education Discussed with Patient CAD and cardiac anatomy and function:: Patient communicates acknowledgment Explanation of diagnoses and procedures:: Patient communicates acknowledgment Sign/Symptoms of DC:: Patient communicates acknowledgment Antiplatelet therapy: Patient communicates acknowledgment Proper use of NTG-SL: Patient communicates acknowledgment Emergency procedures and activation of EMS: Patient communicates acknowledgment Compliance of all prescribed medications: Patient communicates acknowledgment Smoking Risk Factors Patient Nicotine/Smoking Risk Factors Are:: Non-smoker Recommendations Recommendations Include:: Second-hand smoke recommendation Response Code Nicotine/Smoking Response Code:: Patient communicates acknowledgment Dyslipidemia Recommendations Recommendations Include:: Lipid profile not available Response Code Dyslipidemia Response Code:: Patient communicates acknowledgment Overweight/Obesity Risk Factors Patient Overweight/Obesity Risk Factors Are:: BMI Normal [24-29 & > 65 years old] Recommendations Recommendations Include:: Exercise 5-7 times/week Response Code Overweight/Obesity:: Patient communicates acknowledgment Hypertension Recommendations Recommendations Include:: Maintain BP <130/85 Response Code Hypertension:: Patient communicates acknowledgment Heart Disease Risk Factors Patient Heart Disease Risk Factors Are:: Previous cardiac event Recommendations Recommendations Include:: Educated family members of their risk Response Code Heart Disease Response Code:: Patient communicates acknowledgment Diabetes Risk Factors Patient Diabetes Risk Factors Are:: No documented hx of diabetes Metabolic Syndrome Recommendations Recommendations Include:: Does not meet criteria Sedentary Recommendations Recommendations Include:: Benefits of regular exercise and Monitored Outpatient Cardiac Rehab Response Code Sedentary Response Code:: Patient communicates acknowledgment Stress Risk Factors Patient Stress Risk Factors Are:: Patient denies stress as a risk factor Recommendations Recommendations Include:: Identification of stressors, and assessment of coping skills Response Code Stress Response Code:: Patient communicates acknowledgment
[2023-02-24] MEDS: 0.9% Normal Saline 1,000 ML 80 ML IV (13:47)
[2023-02-24 14:03] LABS: Reflex Troponin-HS? (from REC) Y
--- NOTE | 2023-02-24 15:40 | CON.PCM.CA_ITS ---
Assessment & Plan Assessment/Plan (1) STEMI (ST elevation myocardial infarction): QUALIFIERS: Involved coronary artery: LAD coronary artery Qualified Code(s): I21.02 - ST elevation (STEMI) myocardial infarction involving left anterior descending coronary artery PLAN: Treated with drug-eluting stent of the proximal LAD. We will keep the patient on aspirin, Brilinta, beta-freddie, statin and continue his ARB. We will check a 2D echo to evaluate his LV function. Patient is being admitted to the CCU for further management of his STEMI. HPI Consult Data Date of Consult: 02/24/23 HPI Narrative Reason for Consultation: STEMI HPI Narrative: BRE QUIGLEY, is a 83 M who presents with chest pain that is retrosternal, pressure-like. Patient has been having this chest pain on and off for about 3 to 4 weeks and it has been getting worse. EKG revealed ST elevation in the anterior leads and a STEMI alert was called. In the emergency room when he was evaluated he had about 3 /10 chest pain. After discussing the risks and benefits, patient was brought emergently to the cardiac Air Quality Technician where he was found to have 99% stenosis in the proximal LAD that was treated with drug- eluting stent placement. Patient was chest pain free at the end of the procedure. He is being admitted to the CCU for further management of his ST elevation LA. Review of systems: All systems reviewed. All systems negative except that in [facility] Medical History (Updated 02/24/23 @ 15:[address] Annamaria Kessler MD) Actinic keratosis Anemia BPH w/o urinary obs/LUTS Cancer Chronic allergic rhinitis Compression fracture of third lumbar vertebra Esotropia Essential hypertension GERD (gastroesophageal reflux disease) Hyperlipidemia Intermittent palpitations Lumbosacral radiculopathy at L5 Multiple premature ventricular complexes Osteoarthritis Seborrheic keratoses Sprain of ligaments of lumbar spine Suspected glaucoma of both eyes Home Medications multivitamin 1 tab PO DAILY supplement 07/18/20 [History Last Taken 02/24/23] acetaminophen 500 mg tablet 500 mg PO BID pain 07/23/20 [History Last Taken 02/24/23] latanoprost 0.005 % eye drops 1 drp ophthalmic (eye) DAILY eyes 02/23/21 [History Last Taken 02/24/23] losartan 50 mg tablet 25 mg PO DAILY heart 01/26/22 [History Last Taken 02/24/23] acyclovir 400 mg tablet 400 mg PO BID antiviral 02/24/23 [History Last Taken 02/24/23] alendronate 70 mg tablet 70 mg PO QWEEK osteoporosis 02/24/23 [History Last Taken 02/19/23] allopurinol 300 mg tablet 300 mg PO DAILY gout 02/24/23 [History Last Taken 02/23/23] calcitonin (salmon) 200 unit/actuation nasal spray 1 spray intranasal DAILY supplement 02/24/23 [History Last Taken 02/24/23] diphenhydramine HCl 25 mg capsule (Allergy (diphenhydramine)) 25 mg PO QHS sleep aide 02/24/23 [History Last Taken 02/23/23] ibrutinib 420 mg tablet 420 mg PO DAILY chemotherapy 02/24/23 [History Last Taken 02/24/23] Allergy/AdvReac Type Severity Reaction Status Date / Time No Known Allergies Allergy Verified 02/24/23 11:37 Family History Father Colon cancer Mother Heart disease Surgical History H/O foot surgery H/O hernia repair History of back surgery Social History household members: spouse housing: house Smoking Status: Former smoker pack-years: 8 how long ago did patient quit smokin years ago alcohol intake: current alcohol intake frequency: 0-2 drinks per day Alcohol type: beer substance use type: does not use what type of physical activity do you participate in: other details: gardening, wood working, household repairs do you feel safe at home: Yes Physical Exam Const alert and oriented x3 HEENT normocephalic Eyes no scleral icterus Resp normal respiratory effort Cardio regular rate Extremity no pedal edema Skin no rashes or lesions noted Psych mental status grossly normal Risk Stratification Risk Stratification Applicable: No Objective Data Vital Signs: Vital Signs Temp Pulse Resp BP Pulse Ox O2 Del Method 98.4 F 83 19 H 158/88 H 98 Room Air 02/24/23 13:45 02/24/23 15:30 02/24/23 15:30 02/24/23 15:30 02/24/23 15:30 02/24/23 15:30 Oxygen Delivery Method Room Air Weight: 149 lb 14.629 oz Body Mass Index (BMI) 22.8 Lab / Micro Data 02/24/23 11:55 02/24/23 11:55 Labs: Laboratory Results - last 24 hr 02/24/23 11:55: WBC 13.0 H, RBC 4.21 L, Hgb 14.3, Hct 42.7, MCV 101.4 H, MCH 34.0 H, MCHC 33.5, RDW Std Deviation 51.3 H, RDW Coeff of Saulo 13.6, Plt Count 238, MPV 10.7, Immature Gran % (Auto) 0.400, Neut % (Auto) 61.7, Lymph % (Auto) 28.4, [place]ois % (Auto) 8.5, Eos % (Auto) 0.5, Baso % (Auto) 0.5, Absolute Neuts (auto) 8.1 H, Absolute Lymphs (auto) 3.70, Nucleated RBC % 0, Sodium 138, Potassium 3.9, Chloride 107, Carbon Dioxide 23.0, Anion Gap 8, BUN 19 H, Creatinine 0.91, Estim Creat Clear Calc 59.52, Est GFR (MDRD) Af Amer 102, Est GFR (MDRD) Non-Af 85, BUN/Creatinine Ratio 20.8 H, Glucose 108 H, Calcium 9.8, Total Bilirubin 0.80, Direct Bilirubin 0.20, AST 24, ALT 25, Alkaline Phosphatase 54, Troponin I High Sens 425 H*, Total Protein 7.9, Albumin 3.7, Globulin 4.2, Lipase 74 Cardiology Labs/Tests 02/24/23 11:55: WBC 13.0 H, RBC 4.21 L, Hgb 14.3, Hct 42.7, MCV 101.4 H, MCH 34.0 H, MCHC 33.5, Plt Count 238, MPV 10.7, Immature Gran % (Auto) 0.400, Neut % (Auto) 61.7, Lymph % (Auto) 28.4, Dubois % (Auto) 8.5, Eos % (Auto) 0.5, Baso % (Auto) 0.5, Absolute Neuts (auto) 8.1 H, Nucleated RBC % 0, Sodium 138, Potassium 3.9, Chloride 107, Carbon Dioxide 23.0, Anion Gap 8, BUN 19 H, Creatinine 0.91, Est GFR (MDRD) Af Amer 102, Est GFR (MDRD) Non-Af 85, BUN/Creatinine Ratio 20.8 H, Glucose 108 H, Calcium 9.8, Total Bilirubin 0.80, Direct Bilirubin 0.20 Rhythm: EKG: ECHO: Stress Test: Cardiac Cath: PCI: CT Surgery: Holter monitor: EPS: PPM: CXR: Chest CT Scan:
[2023-02-24 15:43] LABS: Troponin-I HS 5509 pg/mL (3.0-78.0)
--- NOTE | 2023-02-24 16:00 | PCM.HP.STD ---
HPI - General General Date of Admission: 02/24/23 Date of Service: 02/24/23 Chief Complaint: chest pain HPI Narrative BRE QUIGLEY, is a 83 M who presents with several week history of chest pain. Chest pain was midsternal associated with nausea and shortness of breath. Patient states indigestion and but today it was worse and he notified his primary care doctor who advised to come to the emergency room. In emergency room, patient was noted to have ST elevation in the anterior leads. STEMI team was called and patient was taken to the [facility] where he had a stent placed to his LAD. Currently, the patient is chest pain-free. Patient has never had a myocardial infarction before. [facility] Medical History Actinic keratosis Anemia BPH w/o urinary obs/LUTS Cancer Chronic allergic rhinitis Compression fracture of third lumbar vertebra Esotropia Essential hypertension GERD (gastroesophageal reflux disease) Hyperlipidemia Intermittent palpitations Lumbosacral radiculopathy at L5 Multiple premature ventricular complexes Osteoarthritis Seborrheic keratoses Sprain of ligaments of lumbar spine Suspected glaucoma of both eyes Home Medications multivitamin 1 tab PO DAILY supplement 07/18/20 [History Last Taken 02/24/23] acetaminophen 500 mg tablet 500 mg PO BID pain 07/23/20 [History Last Taken 02/24/23] latanoprost 0.005 % eye drops 1 drp ophthalmic (eye) DAILY eyes 02/23/21 [History Last Taken 02/24/23] losartan 50 mg tablet 25 mg PO DAILY heart 01/26/22 [History Last Taken 02/24/23] acyclovir 400 mg tablet 400 mg PO BID antiviral 02/24/23 [History Last Taken 02/24/23] alendronate 70 mg tablet 70 mg PO QWEEK osteoporosis 02/24/23 [History Last Taken 02/19/23] allopurinol 300 mg tablet 300 mg PO DAILY gout 02/24/23 [History Last Taken 02/23/23] calcitonin (salmon) 200 unit/actuation nasal spray 1 spray intranasal DAILY supplement 02/24/23 [History Last Taken 02/24/23] diphenhydramine HCl 25 mg capsule (Allergy (diphenhydramine)) 25 mg PO QHS sleep aide 02/24/23 [History Last Taken 02/23/23] ibrutinib 420 mg tablet 420 mg PO DAILY chemotherapy 02/24/23 [History Last Taken 02/24/23] Allergy/AdvReac Type Severity Reaction Status Date / Time No Known Allergies Allergy Verified 02/24/23 11:37 Family History (Updated 02/24/23 @ 16:[address] Andrés Macias DO) Father Colon cancer Mother Heart disease Brother Heart disease Surgical History H/O foot surgery H/O hernia repair History of back surgery Social History household members: spouse housing: house Smoking Status: Former smoker pack-years: 8 how long ago did patient quit smokin years ago alcohol intake: current alcohol intake frequency: 0-2 drinks per day Alcohol type: beer substance use type: does not use what type of physical activity do you participate in: other details: gardening, wood working, household repairs do you feel safe at home: Yes ROS ROS Narrative All review of systems were negative except as mentioned above in the history of present illness and the other review of systems. Vital Signs Vital Signs Vital Signs: 02/24/23 11:38 02/24/23 11:47 02/24/23 11:48 Temperature 36.6 C Temperature Source Temporal Pulse Rate 82 88 Respiratory Rate 14 14 Respiratory Effort Normal Non-Labored Respiratory Depth Respiratory Pattern Blood Pressure 209/77 H 189/111 H Blood Pressure Mean 121 137 Blood Pressure Source Blood Pressure Position Blood Pressure Location Pulse Ox 100 98 Oxygen Delivery Method Room Air Room Air 02/24/23 11:52 02/24/23 11:53 02/24/23 12:02 Temperature Temperature Source Pulse Rate 93 Respiratory Rate 23 H Respiratory Effort Respiratory Depth Respiratory Pattern Blood Pressure 189/111 H 188/102 H Blood Pressure Mean Blood Pressure Source Blood Pressure Position Blood Pressure Location Pulse Ox 98 Oxygen Delivery Method Room Air 02/24/23 12:08 02/24/23 13:15 02/24/23 13:30 Temperature 36.6 C Temperature Source Oral Pulse Rate 93 73 66 Respiratory Rate 20 H 20 H 13 Respiratory Effort Respiratory Depth Respiratory Pattern Blood Pressure 188/121 H 136/90 H 135/90 H Blood Pressure Mean 143 105 105 Blood Pressure Source Monitor Monitor Blood Pressure Position Semi-Fowlers Semi-Fowlers Blood Pressure Location Left Arm Left Arm Pulse Ox 99 100 99 Oxygen Delivery Method Room Air Room Air Room Air 02/24/23 13:45 02/24/23 14:00 02/24/23 14:15 Temperature 36.9 C Temperature Source Temporal Pulse Rate 68 65 68 Respiratory Rate 13 12 11 L Respiratory Effort Respiratory Depth Respiratory Pattern Blood Pressure 128/78 H 112/69 123/72 H Blood Pressure Mean 94 83 89 Blood Pressure Source Monitor Monitor Monitor Blood Pressure Position Semi-Fowlers Semi-Fowlers Semi-Fowlers Blood Pressure Location Left Arm Left Arm Left Arm Pulse Ox 98 97 98 Oxygen Delivery Method Room Air Room Air Room Air 02/24/23 14:30 02/24/23 14:45 02/24/23 15:05 Temperature Temperature Source Pulse Rate 67 67 68 Respiratory Rate 11 L 12 Respiratory Effort Respiratory Depth Respiratory Pattern Blood Pressure 120/67 120/67 Blood Pressure Mean 84 84 Blood Pressure Source Monitor Monitor Blood Pressure Position Semi-Fowlers Semi-Fowlers Blood Pressure Location Left Arm Left Arm Pulse Ox 98 99 100 Oxygen Delivery Method Room Air Room Air Room Air 02/24/23 15:30 02/24/23 14:00 Temperature Temperature Source Pulse Rate 83 Respiratory Rate 19 H Respiratory Effort Normal Non-Labored Respiratory Depth Normal Respiratory Pattern Normal Blood Pressure 158/88 H Blood Pressure Mean 111 Blood Pressure Source Monitor Blood Pressure Position Semi-Fowlers Blood Pressure Location Left Arm Pulse Ox 98 Oxygen Delivery Method Room Air Room Air Weight Weight: 68 kg Body Mass Index (BMI) 22.8 Physical Exam Narrative - Physical Exam General: Alert, Oriented x3, Cooperative HEENT: Atraumatic, PERRLA, EOMI, Normocephalic Oral: Moist Mucosa, No Gingival or Mucosal Lesions/ Ulcerations Neck: Supple, No JVD, Negative Carotid Bruits Lungs: Clear to auscultation, Normal air movement Cardiovascular: Regular rate, Normal S1, Normal S2, No murmurs Abdomen: Bowel Sounds Present, Soft, Non Tender, Non-Distended, No Hepato-splenomegaly Extremities: No clubbing, No cyanosis, No edema, Capillary Refill Less than 3 Seconds Skin: No rashes, No breakdown Musculoskeletal: No Tenderness to Palpation of Joints or Extremities Neurological: Neuro grossly intact Psych/Mental Status: Normal Affect, Appropriate Results Lab / Micro Data 02/24/23 11:55 02/24/23 11:55 Labs: Laboratory Results - last 24 hr 02/24/23 11:55: WBC 13.0 H, RBC 4.21 L, Hgb 14.3, Hct 42.7, MCV 101.4 H, MCH 34.0 H, MCHC 33.5, RDW Std Deviation 51.3 H, RDW Coeff of Saulo 13.6, Plt Count 238, MPV 10.7, Immature Gran % (Auto) 0.400, Neut % (Auto) 61.7, Lymph % (Auto) 28.4, [place] % (Auto) 8.5, Eos % (Auto) 0.5, Baso % (Auto) 0.5, Absolute Neuts (auto) 8.1 H, Absolute Lymphs (auto) 3.70, Nucleated RBC % 0, Sodium 138, Potassium 3.9, Chloride 107, Carbon Dioxide 23.0, Anion Gap 8, BUN 19 H, Creatinine 0.91, Estim Creat Clear Calc 59.52, Est GFR (MDRD) Af Amer 102, Est GFR (MDRD) Non-Af 85, BUN/Creatinine Ratio 20.8 H, Glucose 108 H, Calcium 9.8, Total Bilirubin 0.80, Direct Bilirubin 0.20, AST 24, ALT 25, Alkaline Phosphatase 54, Troponin I High Sens 425 H*, Total Protein 7.9, Albumin 3.7, Globulin 4.2, Lipase 74 02/24/23 14:45: Troponin I High Sens 5509 H* EKG Initial EKG: Attestation: I personally reviewed and interpreted this EKG as follows: Prior EKG tracings: available for review EKG Rhythm Intrepretation: Sinus Rhythm (ST ovation in the anterior leads.) Follow-up EKG: Attestation: I personally reviewed and interpreted this EKG as follows: Prior EKG tracings: available for review EKG Rhythm Intrepretation: Sinus Rhythm (Improved ST elevation in anterior leads.) Assessment & Plan Assessment/Plan (1) STEMI (ST elevation myocardial infarction): QUALIFIERS: Involved coronary artery: LAD coronary artery Qualified Code(s): I21.02 - ST elevation (STEMI) myocardial infarction involving left anterior descending coronary artery PLAN: Patient had been having angina several weeks prior to this. Patient went to the [facility] and had a drug-eluting stent to the proximal LAD. Currently is chest pain-free. Patient has received aspirin, ticagrelor, atorvastatin, carvedilol. Patient will continue with losartan. Check 2D echocardiogram PLAN: Plan Chronic conditions Non-Hodgkin's lymphoma: Continue with ibrutinib Gout: Continue with allopurinol Hypertension: Continue with the losartan. Cataracts: Patient was to have surgery on his cataracts next month. Will defer to ophthalmology, with patient being on dual antiplatelet therapy if that would be prohibitive. VTE prophylaxis with SCDs CODE STATUS: Addressed with the patient. Patient wished to be full CODE STATUS. Charges/Coding Visit Charges Inpatient E&M: 94538 Init Hosp L3
--- NOTE | 2023-02-24 16:14 | CL.I_ITS ---
Patient Name: BRE QUIGLEY Study Date: 02/24/2023 Performing: Lucas Kessler MD Ht: 67 inches 170.18 cm : 1940 Wt: 156.5 lbs 70.9 kg Age: 83 Gender: male BSA: 1.82 PROCEDURE(S) PERFORMED DC02-(13521)C/COR IC16-([id number]/[id number])AMI, ANDRZEJ OR PTCA, ARTERY/GRAFT, SINGLE VESSEL CLINICAL PROFILE AND CO-MORBIDITIES Indications: ACS <= 24 hrs Heart Failure: None Stress/Imaging Stress/Image Study Performed: No CAD Presentations: STEMI. Symptom onset Date/Time: Time Not Available CONCLUSIONS CAD as described. Successful PCI of proximal LAD with drug-eluting stent. RECOMMENDATIONS DESCRIPTION OF PROCEDURE The patient arrived to the procedure lab. The risks and benefits of the procedure as well as a full description of our services here and lack of surgical backup were fully explained to the patient and/or their significant other prior to the catheterization. The Timeout was completed, verifying the correct patient and procedure. The patient's procedural site was prepped and draped in the usual fashion. Local anesthetic was given subcutaneously to right radial region with Lidocaine 2%. Using a modified Seldinger technique, arterial access was obtained via the right radial artery, a 6Fr sheath was inserted.. Right Coronary Artery selective angiography was then performed in multiple views using a 5 Fr. JR 4 catheter. Left Coronary Artery selective angiography was performed in multiple views using a 6 Fr. XB3The images were reviewed and options discussed. A decision was then made to proceed with an Intervention, IVUS or other adjunct procedure. XB3 Guide catheter was inserted and engaged into the LCA. BMW Sidell Guide wire was advanced to the LAD. Emerge 2.50 x 12 Balloon catheter was inserted. Balloon catheter was advanced across lesion in the LAD, proximal. PTCA balloon inflated at 10 atms for 26 secs. PTCA balloon inflated at 12 atms for 25 secs. Resolute Flaco 2.75 x 12 Drug Eluting stent was inserted. Drug Eluting stent was advanced across the lesion in the LAD, proximal. Angiogram performed post stent deployment. The arterial sheath was pulled and a TR Band was applied for hemostasis CORONARY ANGIOGRAPHY DOMINANCE: Right Dominant LEFT MAIN: Mild luminal irregularities LEFT ANTERIOR DESCENDING ARTERY: PROX LAD: 99 % Stenosis CIRCUMFLEX ARTERY: Mild luminal irregularities RIGHT CORONARY ARTERY: Mild luminal irregularities INTERVENTION INFORMATION LESION SITE: LAD (Proximal) Lesion Complexity: High/C, chronic total occlusion: No, lesion at bifurcation: No, thrombus present: No, lesion length: 11 mm, culprit lesion: Yes, Previously treated lesion: No Pre Stenosis: 99 % Pre intervention BEATRIZ flow: 2 PROCEDURE: Drug Eluting Stent with pre dilatation. Post Stenosis: 0 % Post intervention BEATRIZ flow: 3 Lesion Devices: Cordis 6 Fr XB3.0 100cm Guide Catheter [place] .014 190cm BMW Sidell Straight Caleb Sci EMERGE MR 2.50x12 BALLOON Medtronic Resolute Flaco RX ANDRZEJ 2.75x12 COMPLICATIONS No Complications PROCEDURE MEDICATIONS Oxygen: 2 L/min via nasal cannula Heparin given IA 02/24/2023 12:17:56 Verapamil 2.5mg, Ntg 100mcgs, 3000 units of Heparin given IA 02/24/2023 12:17:56 SUMMARY OF HEMODYNAMIC DATA Time AIR REST ECG 12:13:01 AO 137/78 (105) SA 12:20:31 Signed By Lucas Kessler MD On 02/24/2023 16:13:26 Lucas Kessler MD
[2023-02-24] MEDS: Allopurinol 300 MG Tablet PO (21:03)
[2023-02-24] MEDS: Carvedilol 6.25 MG Tablet PO (21:04)
[2023-02-24] MEDS: Atorvastatin Calcium 40 MG Tablet PO (21:04)
[2023-02-24] MEDS: Acyclovir 200 MG Capsule 400 MG PO (21:04)
[2023-02-24] MEDS: TICAGRELOR 90 MG TABLET PO (21:04)
[2023-02-24] MEDS: DiphenhydrAMINE 25 MG Capsule PO (21:07)
[2023-02-24] MEDS: Acetaminophen 500 MG Tablet PO (21:07)
[2023-02-25] VITALS (16 sets, daily range): BP systolic 109–163; BP diastolic 61–90; PULSE 59–74; RESP 11–18; TEMP 36.6–37.2; O2SAT 95–100; BMI 21.9
[2023-02-25 03:54] LABS: Hematocrit 38.3 % (40-54); Mean Corp Hgb Conc 33.9 g/dL (32-36); Mean Corpuscular Hgb 34.1 pg (27.0-32.0); Mean Corpuscular Volume 100.5 fL (80-94); Mean Platelet Vol. 10.5 fl (6.2-12.0); Platelet Count 204 K/mm3 (150-450); RBC Distribution Width CV 13.7 % (11.6-14.6); Red Blood Count 3.81 M/mm3 (4.6-6.2); White Blood Count 9.9 K/mm3 (4.4-11.0)
[2023-02-25 04:16] LABS: ALB/GLOB Ratio 0.8 RATIO (0.9-2.4); AST(SGOT) 83 U/L (15-37); Alanine Aminotransfer ALT/SGPT 29 U/L (16-61); Alkaline Phosphatase 46 U/L (45-117); Anion Gap 4 (5-15); BUN 17 mg/dL (7-18); BUN/Creat Ratio 22.4 RATIO (10-20); Chloride 111 mmol/L (98-107); Cholesterol 231 mg/dL (200); Creatinine, Serum 0.76 mg/dL (0.70-1.30); EST Glomerular Filtration Rate 105 mL/min (>60); Est Glom Filt Rate - Afr Amer 127 mL/min (>60); Estimated Creatinine Clearance 55.72 ml/min; Globulin 3.8 g/dL (2.2-4.2); Glucose 93 mg/dL (74-106); High Density Lipoprotein 56 mg/dL; Protein, Total 6.8 g/dL (6.4-8.2); Sodium Level 140 mmol/L (136-145); Triglycerides 137 mg/dL; Very Low Density Lipoprotein 27 mg/dL (5-40)
--- NOTE | 2023-02-25 07:13 | PN.HOSP_ITS ---
Reason for Visit Reason for Visit: Diagnoses ST elevation (STEMI) myocardial infarction involving left anterior descending c oronary artery (02/24/23) ST elevation (STEMI) myocardial infarction of unspecified site (02/24/23) Subjective Subjective No chest pain. Objective Data Objective Data Vital Signs: Vital Signs Temp Pulse Resp BP Pulse Ox O2 Del Method 37.0 C 59 L 16 132/79 H 97 Room Air 02/25/23 04:00 02/25/23 06:00 02/25/23 06:00 02/25/23 06:00 02/25/23 06:00 02/25/23 06:00 Oxygen Delivery Method Room Air Weight: 68 kg Body Mass Index (BMI) 22.8 Intake & Output: Intake and Output for Last 24 Hours 02/23/23 02/24/23 02/25/23 23:59 23:59 23:59 Intake Total 1000 / 1000 Output Total 300 / 1000 1050 / 1050 Balance 700 / 0 -1050 / -1050 Lab / Micro Data 02/25/23 03:40 02/25/23 03:40 Labs: Laboratory Results - last 24 hr 02/24/23 11:55: WBC 13.0 H, RBC 4.21 L, Hgb 14.3, Hct 42.7, MCV 101.4 H, MCH 34.0 H, MCHC 33.5, RDW Std Deviation 51.3 H, RDW Coeff of Saulo 13.6, Plt Count 238, MPV 10.7, Immature Gran % (Auto) 0.400, Neut % (Auto) 61.7, Lymph % (Auto) 28.4, [place] % (Auto) 8.5, Eos % (Auto) 0.5, Baso % (Auto) 0.5, Absolute Neuts (auto) 8.1 H, Absolute Lymphs (auto) 3.70, Nucleated RBC % 0, Sodium 138, Potass ium 3.9, Chloride 107, Carbon Dioxide 23.0, Anion Gap 8, BUN 19 H, Creatinine 0.91, Estim Creat Clear Calc 59.52, Est GFR (MDRD) Af Amer 102, Est GFR (MDRD) Non-Af 85, BUN/Creatinine Ratio 20.8 H, Glucose 108 H, Calcium 9.8, Total Bilirubin 0.80, Direct Bilirubin 0.20, AST 24, ALT 25, Alkaline Phosphatase 54, Troponin I High Sens 425 H*, Total Protein 7.9, Albumin 3.7, Globulin 4.2, Lipase 74 02/24/23 14:45: Troponin I High Sens 5509 H* 02/25/23 03:40: WBC 9.9, RBC 3.81 L, Hgb 13.0, Hct 38.3 L, MCV 100.5 H, MCH 34.1 H, MCHC 33.9, RDW Std Deviation 51.0 H, RDW Coeff of Saulo 13.7, Plt Count 204, MPV 10.5, Sodium 140, Potassium 4.0, Chloride 111 H, Carbon Dioxide 25.0, Anion Gap 4 L, BUN 17, Creatinine 0.76, Estim Creat Clear Calc 55.72, Est GFR (MDRD) Af Amer 127, Est GFR (MDRD) Non-Af 105, BUN/Creatinine Ratio 22.4 H, Glucose 93, Calcium 9.0, Total Bilirubin 0.60, AST 83 H, ALT 29, Alkaline Phosphatase 46, Total Protein 6.8, Albumin 3.0 L, Globulin 3.8, Albumin/Globulin Ratio 0.8 L, Triglycerides 137, Cholesterol 231 H, LDL Cholesterol 148 H, VLDL Cholesterol 27, HDL Cholesterol 56 Physical Exam Const alert and no apparent distress Resp normal respiratory effort, no retractions, no use of accessory muscles and clear to auscultation bilaterally Cardio regular rate, regular rhythm, S1 normal heart sound and S2 normal heart sound GI normal to inspection, nondistended, normoactive bowel sounds, soft to palpation, non-tender and non-distended Extremity normal to inspection Assessment & Plan Assessment/Plan (1) STEMI (ST elevation myocardial infarction): QUALIFIERS: Involved coronary artery: LAD coronary artery Qualified Code(s): I21.02 - ST elevation (STEMI) myocardial infarction involving left anterior descending coronary artery PLAN: Patient had been having angina several weeks prior to this. Patient went to the [facility] and had a drug-eluting stent to the proximal LAD. Currently is chest pain-free. Patient has received aspirin, ticagrelor, atorvastatin, carvedilol. Patient will continue with losartan. 2D echocardiogram shows EF of 45-50%. (2) Cardiomyopathy: QUALIFIERS: Cardiomyopathy type: ischemic Qualified Code(s): I25.5 - Ischemic cardiomyopathy PLAN: EF 45-50% Continue losartan Follow up with cardiology as outpt PLAN: Plan Chronic conditions * Non-Hodgkin's lymphoma: Continue with ibrutinib * Gout: Continue with allopurinol * Hypertension: Continue with the losartan. * Cataracts: Patient was to have surgery on his cataracts next month. Will defer to ophthalmology, with patient being on dual antiplatelet therapy if that would be prohibitive. VTE prophylaxis with SCDs CODE STATUS: Addressed with the patient. Patient wished to be full CODE STATUS. Transfer to PCU. Anticipate DC on 02/26 if remains stable. Charges/Coding Visit Charges Inpatient E&M: 90161 Subs Hosp L2
[2023-02-25] MEDS: Acetaminophen 500 MG Tablet PO ×2 (08:19→20:45)
[2023-02-25] MEDS: Losartan Potassium 50 MG Tablet 25 MG PO (08:19)
[2023-02-25] MEDS: Acyclovir 200 MG Capsule 400 MG PO ×2 (08:19→20:45)
[2023-02-25] MEDS: Carvedilol 6.25 MG Tablet PO ×2 (08:20→20:45)
[2023-02-25] MEDS: Aspirin E.C. 81 MG Tablet PO (08:20)
[2023-02-25] MEDS: TICAGRELOR 90 MG TABLET PO ×2 (08:20→20:48)
[2023-02-25] MEDS: Calcitonin-Salmon 1 SPRAY SPRAY NARES (08:20)
--- NOTE | 2023-02-25 09:20 | CASEMGMT ---
Social Work SW let pt know that he does not have LW/POA on file, asked him to have family bring in documents as able. Pt states understanding. YUNIEL Calderón
--- NOTE | 2023-02-25 09:30 | CASEMGMT ---
RN?CM?SCHOOL COUNSELLOR?CM?to room to meet with patient for initial transition planning/care coordination?assessment.?RN?CM?introduced self and role at [facility].? Pt voices understanding and consents to?assessment?at this time.? Pt resting in bed in no distress at this time.? Pt is A/O at this time and answers all questions appropriately.?? Care providers, pharmacy, and demographics verified/updated at this time. PCP: Dr Silva Specialists: Dr Coker-oncology, Dr John-opthalmology/[facility] Preferred [facility]acy: [facility] Insurance: [employer] Prescription Benefit:?Yes. [employer] 30-day savings card provided to pt and instructed on use. Questions answered. Living Will/HPOA:?Has both LW and HCPOA, who is his , Urvashi LNOK: , Urvashi. Pt does not have any children. Living Arrangements: Lives w/his in one-story home w/basement w/3-4 steps to enter. Pt is indep @ baseline w/ADL's and manages his own medications. Pt and share home mgnt tasks. Transportation:?Pt states drives self. does not drive. Pt states either a neighbor sister will take him home @ d/c. DME: ?States has the following DME:?a shower chair he uses on occasion. Pt has a walker and W/C available, but does not use them. ?Pt states no need for further DME at this time.? HHC/SNF: No hx of either. Pt denies wanting/needing HHC. PT/OT evals pending. Pt wishes to return home and states has no concerns with going home at time of discharge. CM?to follow for any further discharge planning/needs.? Pt voices no further concerns/needs at this time.? Advised pt to ask for?CM?if any further questions/concerns/needs arise.? Voices understanding. PLAN:??Home Shelley BSN?RN?CM
--- NOTE | 2023-02-25 15:04 | PN.CARD_ITS ---
Subjective Subjective Patient is doing well. Denies any cardiac complaints. He had some episodes of nonsustained V. tach yesterday. No episodes noted after around 6 PM yesterday. Objective Data Vital Signs: Vital Signs Temp Pulse Resp BP Pulse Ox O2 Del Method 98.4 F 69 16 119/77 100 Room Air 02/25/23 11:00 02/25/23 11:00 02/25/23 11:00 02/25/23 11:00 02/25/23 11:00 02/25/23 11:00 Oxygen Delivery Method Room Air Weight: 144 lb 8 oz Body Mass Index (BMI) 21.9 Intake & Output: Intake and Output for Last 24 Hours 02/23/23 02/24/23 02/25/23 23:59 23:59 23:59 Intake Total 1000 / 1000 180 / 180 Output Total 300 / 1000 1550 / 1550 Balance 700 / 0 -1370 / -1370 Lab / Micro Data 02/25/23 03:40 02/25/23 03:40 Labs: Laboratory Results - last 24 hr 02/24/23 14:45: Troponin I High Sens 5509 H* 02/25/23 03:40: WBC 9.9, RBC 3.81 L, Hgb 13.0, Hct 38.3 L, MCV 100.5 H, MCH 34.1 H, MCHC 33.9, RDW Std Deviation 51.0 H, RDW Coeff of Saulo 13.7, Plt Count 204, MPV 10.5, Sodium 140, Potassium 4.0, Chloride 111 H, Carbon Dioxide 25.0, Anion Gap 4 L, BUN 17, Creatinine 0.76, Estim Creat Clear Calc 55.72, Est GFR (MDRD) Af Amer 127, Est GFR (MDRD) Non-Af 105, BUN/Creatinine Ratio 22.4 H, Glucose 93, Calcium 9.0, Total Bilirubin 0.60, AST 83 H, ALT 29, Alkaline Phosphatase 46, Total Protein 6.8, Albumin 3.0 L, Globulin 3.8, Albumin/Globulin Ratio 0.8 L, Triglycerides 137, Cholesterol 231 H, LDL Cholesterol 148 H, VLDL Cholesterol 27, HDL Cholesterol 56 Cardiology Labs/Tests 02/25/23 03:40: WBC 9.9, RBC 3.81 L, Hgb 13.0, Hct 38.3 L, MCV 100.5 H, MCH 34.1 H, MCHC 33.9, Plt Count 204, MPV 10.5, Sodium 140, Potassium 4.0, Chloride 111 H , Carbon Dioxide 25.0, Anion Gap 4 L, BUN 17, Creatinine 0.76, Est GFR (MDRD) Af Amer 127, Est GFR (MDRD) Non-Af 105, BUN/Creatinine Ratio 22.4 H, Glucose 93, Calcium 9.0, Total Bilirubin 0.60, Triglycerides 137, Cholesterol 231 H, LDL Cholesterol 148 H, VLDL Cholesterol 27, HDL Cholesterol 56 Rhythm: EKG: ECHO: Stress Test: Cardiac Cath: PCI: CT Surgery: Holter monitor: EPS: PPM: CXR: Chest CT Scan: Radiography Diagnostic Testing: Radiology Impression Echocardiogram 02/24/23 12:50 Interpretation Summary The estimated ejection fraction is 45-50 %. Stage 2 diastolic dysfunction. The left atrium is mildly enlarged. Mild aortic stenosis. Mild (1+) mitral valve insufficiency. Ordering Physician: Annamaria Kessler Referring Physician: Danay Silva Performed By: Анна Das, NOLANCS, RVT Physical Exam Const alert and oriented x3 HEENT normocephalic Eyes no scleral icterus Chest inspection of chest normal Resp normal respiratory effort Cardio regular rate Extremity no pedal edema Skin no rashes or lesions noted Assessment & Plan Assessment/Plan (1) STEMI (ST elevation myocardial infarction): QUALIFIERS: Involved coronary artery: LAD coronary artery Qualified Code(s): I21.02 - ST elevation (STEMI) myocardial infarction involving left anterior descending coronary artery PLAN: Treated with drug-eluting stent of the proximal LAD. Doing well. Continue current medications. Okay to transfer patient to PCU. If patient has an uneventful course overnight then he can be discharged home tomorrow. Charges/Coding Visit Charges Inpatient E&M: 95490 Init Hosp L2
[2023-02-25] MEDS: Multivitamins,Therapeutic Tablet 1 TABLET PO (18:17)
[2023-02-25] MEDS: Atorvastatin Calcium 40 MG Tablet PO (20:45)
[2023-02-25] MEDS: DiphenhydrAMINE 25 MG Capsule PO (20:48)
[2023-02-25] MEDS: Allopurinol 300 MG Tablet PO (20:48)
[2023-02-25] MEDS: Latanoprost 0.005% 1 Bottle 1 DRP OPHTHALMIC (20:48)
[2023-02-26 03:00] VITALS: BP 106/58; PULSE 60; RESP 18; TEMP 37; O2SAT 99
[2023-02-26 04:00] VITALS: BP 106/58; PULSE 60; RESP 15; TEMP 37; O2SAT 99
[2023-02-26 04:18] VITALS: BMI 21.9
--- NOTE | 2023-02-26 07:02 | PN.HOSP_ITS ---
Reason for Visit Reason for Visit: Diagnoses ST elevation (STEMI) myocardial infarction involving left anterior descending c oronary artery (02/24/23) ST elevation (STEMI) myocardial infarction of unspecified site (02/24/23) Ischemic cardiomyopathy (02/24/23) Subjective Subjective Feels well. Redy to go home. Objective Data Objective Data Vital Signs: Vital Signs Temp Pulse Resp BP Pulse Ox O2 Del Method 37.0 C 60 15 106/58 L 99 Room Air 02/26/23 04:00 02/26/23 04:00 02/26/23 04:00 02/26/23 04:00 02/26/23 04:00 02/26/23 04:00 Oxygen Delivery Method Room Air Weight: 65.828 kg Body Mass Index (BMI) 21.9 Intake & Output: Intake and Output for Last 24 Hours 02/24/23 02/25/23 02/26/23 23:59 23:59 23:59 Intake Total 1000 / 1000 420 / 470 50 / 50 Output Total 300 / 1000 1550 / 1550 Balance 700 / 0 -1130 / -1080 50 / 50 Lab / Micro Data 02/25/23 03:40 02/25/23 03:40 Radiography Diagnostic Testing: Radiology Impression Echocardiogram 02/24/23 12:50 Interpretation Summary The estimated ejection fraction is 45-50 %. Stage 2 diastolic dysfunction. The left atrium is mildly enlarged. Mild aortic stenosis. Mild (1+) mitral valve insufficiency. Ordering Physician: Annamaria Kessler Referring Physician: Danay Silva Performed By: Анна Das, FALLON, RVT Physical Exam Const alert and no apparent distress HEENT head/scalp atraumatic and moist oral mucous membranes Resp normal respiratory effort, no retractions and no use of accessory muscles Cardio regular rate, regular rhythm, S1 normal heart sound and S2 normal heart sound Cardio Narrative: 08/02 RUSB RAMO. GI normal to inspection, nondistended, normoactive bowel sounds, soft to palpation, non-tender and non-distended Assessment & Plan Assessment/Plan (1) STEMI (ST elevation myocardial infarction): QUALIFIERS: Involved coronary artery: LAD coronary artery Qualified Code(s): I21.02 - ST elevation (STEMI) myocardial infarction involving left anterior descending coronary artery PLAN: Patient had been having angina several weeks prior to this. Patient went to the [facility] and had a drug-eluting stent to the proximal LAD. Currently is chest pain-free. Patient has received aspirin, ticagrelor, atorvastatin, carvedilol. Patient will continue with losartan. 2D echocardiogram shows EF of 45-50%. (2) Cardiomyopathy: QUALIFIERS: Cardiomyopathy type: ischemic Qualified Code(s): I25.5 - Ischemic cardiomyopathy PLAN: EF 45-50% Continue losartan Follow up with cardiology as outpt (3) Aortic stenosis: QUALIFIERS: Cardiac valve disease etiology: etiology unspecified Qualified Code(s): I35.0 - Nonrheumatic aortic (valve) stenosis PLAN: Noted on echo as mild Follow up with cardiology as outpt for further monitoring. PLAN: Plan Chronic conditions * Non-Hodgkin's lymphoma: Continue with ibrutinib * Gout: Continue with allopurinol * Hypertension: Continue with the losartan. * Cataracts: Patient was to have surgery on his cataracts next month. Will defer to ophthalmology, with patient being on dual antiplatelet therapy if that would be prohibitive. CODE STATUS: Addressed with the patient. Patient wished to be full CODE STATUS.
[2023-02-26] MEDS: Losartan Potassium 50 MG Tablet 25 MG PO (09:24)
[2023-02-26] MEDS: TICAGRELOR 90 MG TABLET PO (09:25)
[2023-02-26] MEDS: Aspirin E.C. 81 MG Tablet PO (09:25)
[2023-02-26] MEDS: Acyclovir 200 MG Capsule 400 MG PO (09:25)
[2023-02-26] MEDS: Carvedilol 6.25 MG Tablet PO (09:26)
[2023-02-26] MEDS: Acetaminophen 500 MG Tablet PO (09:28)
[2023-02-26 09:50] VITALS: BP 130/86; PULSE 78; RESP 15; TEMP 37; O2SAT 98
--- NOTE | 2023-02-26 10:09 | DS.PCM_ITS ---
Providers Date of Admission: 02/24/23 Primary Care Physician: Dr. Danay Silva MD Reason For Visit: STEMI Diagnosis Discharge Diagnosis (1) STEMI (ST elevation myocardial infarction): Status: Acute Code(s): I21.3 - ST elevation (STEMI) myocardial infarction of unspecified site Qualifiers: Involved coronary artery: LAD coronary artery Qualified Code(s): I21.02 - ST elevation (STEMI) myocardial infarction involving left anterior descending coronary artery Plan: Patient had been having angina several weeks prior to this. Patient went to the [facility] and had a drug-eluting stent to the proximal LAD. Currently is chest pain-free. Patient has received aspirin, ticagrelor, atorvastatin, carvedilol. Patient will continue with losartan. 2D echocardiogram shows EF of 45-50%. Due to ticagrelor not covered by his insurance formulary, will use clopidogrel, which is covered under his insurance formulary. (2) Cardiomyopathy: Status: Acute Code(s): I42.9 - Cardiomyopathy, unspecified Qualifiers: Cardiomyopathy type: ischemic Qualified Code(s): I25.5 - Ischemic cardiomyopathy Plan: EF 45-50% Continue losartan Follow up with cardiology as outpt (3) Aortic stenosis: Status: Acute Code(s): I35.0 - Nonrheumatic aortic (valve) stenosis Qualifiers: Cardiac valve disease etiology: etiology unspecified Qualified Code(s): I35.0 - Nonrheumatic aortic (valve) stenosis Plan: Noted on echo as mild Follow up with cardiology as outpt for further monitoring. Plan Chronic conditions * Non-Hodgkin's lymphoma: Continue with ibrutinib * Gout: Continue with allopurinol * Hypertension: Continue with the losartan. * Cataracts: Patient was to have surgery on his cataracts next month. Will defer to ophthalmology, with patient being on dual antiplatelet therapy if that would be prohibitive. CODE STATUS: Addressed with the patient. Patient wished to be full CODE STATUS. Medications at Discharge Home Medications multivitamin 1 tab PO DAILY supplement 07/18/20 acetaminophen 500 mg tablet 500 mg PO BID pain 07/23/20 latanoprost 0.005 % eye drops 1 drp ophthalmic (eye) DAILY eyes 02/23/21 losartan 50 mg tablet 25 mg PO DAILY heart 01/26/22 acyclovir 400 mg tablet 400 mg PO BID antiviral 02/24/23 alendronate 70 mg tablet 70 mg PO QWEEK osteoporosis 02/24/23 allopurinol 300 mg tablet 300 mg PO DAILY gout 02/24/23 calcitonin (salmon) 200 unit/actuation nasal spray 1 spray intranasal DAILY supplement 02/24/23 diphenhydramine HCl 25 mg capsule (Allergy (diphenhydramine)) 25 mg PO QHS sleep aide 02/24/23 ibrutinib 420 mg tablet 420 mg PO DAILY chemotherapy 02/24/23 aspirin 81 mg tablet,delayed release 81 mg PO DAILY@0800 #0 tabs 02/26/23 atorvastatin 40 mg tablet 40 mg PO QHS #30 tabs 02/26/23 carvedilol 6.25 mg tablet 6.25 mg PO BID #60 tabs 02/26/23 clopidogrel 75 mg tablet 75 mg PO DAILY #30 tabs 02/26/23 nitroglycerin 0.4 mg sublingual tablet 0.4 mg sublingual Q5M PRN Chest Pain #10 tabs 02/26/23 Hospital Course Operations None Procedures 2-D Echocardiogram and Cardiac catheterization Summary of Care Provided Minutes Spent on Discharge: 32 Weight / BMI Weight Weight: 65.828 kg Body Mass Index (BMI) 21.9 ABG / Lab / Microbiology Data 02/25/23 03:40 02/25/23 03:40 Radiography Diagnostic Testing: Radiology Impression Echocardiogram 02/24/23 12:50 Interpretation Summary The estimated ejection fraction is 45-50 %. Stage 2 diastolic dysfunction. The left atrium is mildly enlarged. Mild aortic stenosis. Mild (1+) mitral valve insufficiency. Ordering Physician: Annamaria Kessler Referring Physician: Danay Silva Performed By: Анна Das, RDCS, RVT D/C Instructions Discharge Diet: Low fat / Low cholesterol Call your doctor if you observe: Shortness of breath and Chest pain Meaningful Use Info Meaningful Use Diagnoses (Choose all that apply): AMI AMI/Post PCI/Angioplasty Aspirin given w/in 24hrs of arrival?: Yes ASA at discharge?: Yes Antiplatelet Therapy at Discharge:: Yes Statins at discharge?: Yes Estrada/ARB at discharge?: Yes Beta Bebe at discharge?: Yes Done w/ Acute [place] measure.: Yes Documented LVEF (%): 45 Discharge Plan Admission Admit Date/Time: 02/24/23 15:53 Primary Reason for Your Visit: myocardial infarction (heart attack) Attending Provider: Annamaria Kessler Primary Care Provider: Danay Silva Instructions Additional Instructions / Restrictions: You had a myocardial infarction (heart attack) requinging a stent. It is imperative that you take you medication as instructed. Please, follow up with cardiology. Discharge Orders/Prescriptions Prescriptions: New atorvastatin 40 mg Tablet 40 mg PO QHS Qty: 30 0RF aspirin 81 mg Tablet,Delayed Release (Dr/Ec) 81 mg PO DAILY@0800 Qty: 0 0RF carvedilol 6.25 mg Tablet 6.25 mg PO BID Qty: 60 0RF nitroglycerin 0.4 mg Tablet, Sublingual 0.4 mg sublingual Q5M PRN (Reason: Chest Pain) Qty: 10 0RF clopidogrel 75 mg tablet 75 mg PO DAILY Qty: 30 0RF Continued multivitamin Tablet 1 tab PO DAILY Rx Instructions: takes in the evening acetaminophen 500 mg tablet 500 mg PO BID losartan 50 mg tablet 25 mg PO DAILY latanoprost 0.005 % drops 1 drp ophthalmic (eye) DAILY Rx Instructions: 1 drop each eye acyclovir 400 mg tablet 400 mg PO BID Patient Comments: TAKE 1 TABLET BY MOUTH TWICE A DAY alendronate 70 mg tablet 70 mg PO QWEEK Patient Comments: takes weekly on Saturdays allopurinol 300 mg tablet 300 mg PO DAILY Patient Comments: TAKE 1 TABLET BY MOUTH EVERY DAY Rx Instructions: patient takes in the evening calcitonin (salmon) 200 unit/actuation spray,non-aerosol 1 spray intranasal DAILY Patient Comments: USE 1 SPRAY IN THE NOSE ONCE DAILY. ALTERNATE NOSTRIL EVERY OTHER DAY ibrutinib 420 mg tablet 420 mg PO DAILY diphenhydramine HCl [Allergy (diphenhydramine)] 25 mg capsule 25 mg PO QHS Referrals / Follow Up: [facility] [Provider Group] - Within 1 Month Danay Silva MD [Primary Care Provider] - Within 2 Weeks Disposition Disposition (needs filled in before D/C Order can be placed): Home, Self Care Charges/Coding Visit Charges Inpatient E&M: 40407 Disch Hosp >30min
== END 2023-02-26 11:33 | disposition home or self-care (01) | DRG 247 ==
LOC: ED 12:11 → ICU 16:10
PROVIDERS: Admitting Provider Specialist; Emergency Provider Emergency Medicine; PCP Internal Medicine; Referring Provider Specialist; Visit Provider Specialist
DX: I21.02 ST elevation (STEMI) myocardial infarction involving left anterior descending coronary artery (principal); C85.90 Non-Hodgkin lymphoma, unspecified, unspecified site; I10 Essential (primary) hypertension; I35.0 Nonrheumatic aortic (valve) stenosis; I25.10 Atherosclerotic heart disease of native coronary artery without angina pectoris; E78.5 Hyperlipidemia, unspecified; I25.5 Ischemic cardiomyopathy; M10.9 Gout, unspecified; H26.9 Unspecified cataract; Z95.5 Presence of coronary angioplasty implant and graft; Z79.899 Other long term (current) drug therapy; Z87.891 Personal history of nicotine dependence
CPT/HCPCS: 80048; 80053; 80061; 80076; 83690; 84484; 85025; 85027; 92941; 93005; 93306; 93454; 97110; 97116; 97161; 97165; 97802; 99285; J7030; J7040; Q9967; A4216; C1725; C1769; C1874; C1887; C1894; C9606; J3490

== ENCOUNTER 2023-02-26 12:08 | Observation (INO) | payer MEDICARE, OTHER, SELFPAY ==
[2023-02-26] VITALS (15 sets, daily range): BP systolic 89–148; BP diastolic 58–87; PULSE 57–71; RESP 11–20; TEMP 36.2–37.1; O2SAT 93–99; BMI 23.8; BMI 22.2
[2023-02-26] MEDS: 0.9% Normal Saline 1,000 ML 1000 ML IV (12:18)
--- NOTE | 2023-02-26 12:18 | EDS_ITS ---
HPI History of Present Illness Chief Complaint: Weakness Narrative Narrative: 83-year-old male past medical history of lymphoma, states he received chemotherapy 2 days ago, was discharged from the hospital earlier today. He states that on , he was admitted to the hospital and had a cardiac stent placed. He was having chest pain at that time. His catheterization was 3 days ago. He states he went directly to the [facility] to picker packer his prescriptions, started feeling nauseated and lightheaded and most likely had a syncopal episode. The next thing he remembered was that he was being put on the cot and brought back to the hospital. He currently denies any chest pain or shortness of breath. No recent fevers or chills, no problems with urination. [facility] Medical History Actinic keratosis Anemia BPH w/o urinary obs/LUTS Cancer Chronic allergic rhinitis Compression fracture of third lumbar vertebra Esotropia Essential hypertension GERD (gastroesophageal reflux disease) Hyperlipidemia Intermittent palpitations Lumbosacral radiculopathy at L5 Multiple premature ventricular complexes Osteoarthritis Seborrheic keratoses Sprain of ligaments of lumbar spine Suspected glaucoma of both eyes Home Medications multivitamin 1 tab PO DAILY supplement 07/18/20 [History Last Taken 02/24/23] acetaminophen 500 mg tablet 500 mg PO BID pain 07/23/20 [History Last Taken 02/24/23] latanoprost 0.005 % eye drops 1 drp ophthalmic (eye) DAILY eyes 02/23/21 [History Last Taken 02/24/23] losartan 50 mg tablet 25 mg PO DAILY heart 01/26/22 [History Last Taken 02/24/23] acyclovir 400 mg tablet 400 mg PO BID antiviral 02/24/23 [History Last Taken 02/24/23] alendronate 70 mg tablet 70 mg PO QWEEK osteoporosis 02/24/23 [History Last Taken 02/19/23] allopurinol 300 mg tablet 300 mg PO DAILY gout 02/24/23 [History Last Taken 02/23/23] calcitonin (salmon) 200 unit/actuation nasal spray 1 spray intranasal DAILY supplement 02/24/23 [History Last Taken 02/24/23] diphenhydramine HCl 25 mg capsule (Allergy (diphenhydramine)) 25 mg PO QHS sleep aide 02/24/23 [History Last Taken 02/23/23] ibrutinib 420 mg tablet 420 mg PO DAILY chemotherapy 02/24/23 [History Last Taken 02/24/23] aspirin 81 mg tablet,delayed release 81 mg PO DAILY@0800 #0 tabs 02/26/23 [Rx Last Taken Unknown] atorvastatin 40 mg tablet 40 mg PO QHS #30 tabs 02/26/23 [Rx Last Taken Unknown] carvedilol 6.25 mg tablet 6.25 mg PO BID #60 tabs 02/26/23 [Rx Last Taken Unknown] clopidogrel 75 mg tablet 75 mg PO DAILY #30 tabs 02/26/23 [Rx Last Taken Unknown] nitroglycerin 0.4 mg sublingual tablet 0.4 mg sublingual Q5M PRN Chest Pain #10 tabs 02/26/23 [Rx Last Taken Unknown] Allergy/AdvReac Type Severity Reaction Status Date / Time No Known Allergies Allergy Verified 02/24/23 11:37 Family History Father Colon cancer Mother Heart disease Brother Heart disease Surgical History H/O foot surgery H/O hernia repair History of back surgery History of placement of stent in LAD coronary artery (~02/24/23) Social History household members: spouse housing: house Smoking Status: Former smoker pack-years: 8 how long ago did patient quit smokin years ago alcohol intake: current alcohol intake frequency: 0-2 drinks per day Alcohol type: beer substance use type: does not use what type of physical activity do you participate in: other details: gardening, wood working, household repairs do you feel safe at home: Yes ROS ROS ED ROS Narrative Constitutional: No fever, no chills. HEENT: No sore throat. No neck pain. No loss of vision. No rhinorrhea. Cardiovascular: No chest pain. No palpitations. No pedal edema. Respiratory: No cough, no shortness of breath. Abdominal: No abdominal pain. Resolved nausea. No vomiting. Genitourinary: No dysuria. No hematuria. Musculoskeletal: No myalgias. No arthralgias. Neurologic: No headaches. No dizziness. Positive lightheadedness, collapsed. Possible syncopal episode. Skin: No rash. No change in color. Psychiatric: No depression. No anxiety. EXAM Physical Exam Narrative Exam Narrative: Afebrile. Vital signs noted. Initial hypotensive with systolic blood pressure 89. HEENT: Normocephalic. Atraumatic. PERRL, EOMI. Neck soft and supple. No point tenderness or step off. Cardiovascular: Regular rate and rhythm. No murmurs, rubs, or gallops appreciated. Respiratory: No tachypnea. Lungs clear to auscultation bilaterally. Gastrointestinal: Abdomen soft, nontender, with normoactive bowel sounds. No re bound or guarding. Neurological: Awake. Alert. Alert, oriented. Nonfocal, nonlateralizing. Skin: No rash. Normal color. No pallor. Musculoskeletal: No pedal edema. Full range of motion extremities. Const Vital Signs: 02/26/23 12:10 02/26/23 12:14 02/26/23 13:08 Temperature 97.8 F Temperature Source Temporal Pulse Rate 63 58 L Respiratory Rate 17 14 Respiratory Effort Normal Non-Labored Blood Pressure 89/63 L 112/63 Blood Pressure Mean 71 79 Pulse Ox 98 97 Oxygen Delivery Method Room Air Room Air MDM MDM MDM Narrative Medical decision making narrative: NguyenEKG was obtained with review of the prehospital EKG which demonstrates normal sinus rhythm at 60 bpm without ectopy or acute ST changes. He does have deep T wave inversion in V1 through V5. There is minimal ST elevation less than 1 mm in the inferior leads. However, there is no significant change in the prehospital EKG or the EKG obtained in the ED from an EKG obtained earlier this morning as an inpatient at approximately 5:14 AM. I do feel that the patient most likely is having nausea and weakness from his hypotension/orthostatic hypotension. He will be bolused normal saline 1 L intravenously although his blood pressure has come up to over 100 systolic on its own prior to bolus. I will check a lactic acid along with basic laboratory work and chest x-ray along with urinalysis. He may have more of a dehydration issue. I reviewed his prior laboratory work and his inpatient record. I reviewed the catheterization report which states he had a drug-eluting stent to the proximal LAD which was 99% stenosed. Chest x-ray was obtained and interpreted by myself independently which shows no evidence of acute process, no pneumonia. I do not feel antibiotics are i ndicated. I reviewed the radiology report which confirms my independent interpretation. I reviewed his laboratory work and he has slightly elevated white count of 11.1, hemoglobin normal at 14.2, platelet count normal at 229. He has a normal sodium of 137, potassium 4.0 and normal, chloride 106. BUN is slightly elevated at 28 with a normal creatinine of 1.13. Glucose appropriately elevated at 137 with an anion gap of 9. Lactic acid normal at 1.5. [id number] glucose was 114. His troponin is elevated above 7000. The last troponin from the was 5000+. His family is now at the bedside and stated that while they were at [facility], he was very drowsy and lightheaded, and had a syncopal episode for few minutes. I discussed patient with cardiology, Dr. Kessler, who states with the troponin being elevated although it may have peaked higher and is now coming down, that he feels that given the patient's age and recent stenting/AL that he should be at least observed. I will discuss the patient with the hospitalist, as he was last discharged by Dr. Macias, for observation given his syncopal episode status post stenting. Currently, patient is in stable condition as upon repeat examination he states he feels much better than previous. His blood pressure is now 112/63. Disposition is assigned to observation in stable condition. History & Record Review Additional record(s) reviewed:: Prior inpatient record, Prior ED visit and Prior labs Lab Data Attestation: I reviewed the patient's lab results. Labs: Laboratory Results - last 24 hr 02/26/23 02/26/23 12:13 12:20 WBC 11.1 H RBC 4.20 L Hgb 14.2 Hct 42.0 MCV 100.0 H MCH 33.8 H MCHC 33.8 RDW Std Deviation 50.4 H RDW Coeff of Saulo 13.7 Plt Count 229 MPV 11.0 Immature Gran % (Auto) 0.500 Neut % (Auto) 63.4 Lymph % (Auto) 23.9 [place] % (Auto) 10.6 H Eos % (Auto) 1.0 Baso % (Auto) 0.6 Absolute Neuts (auto) 7.0 Absolute Lymphs (auto) 2.65 Nucleated RBC % 0 Sodium 137 Potassium 4.0 Chloride 106 Carbon Dioxide 22.0 Anion Gap 9 BUN 28 H Creatinine 1.13 Estim Creat Clear Calc 49.60 Est GFR (MDRD) Af Amer 80 Est GFR (MDRD) Non-Af 66 BUN/Creatinine Ratio 24.8 H Glucose 137 H Lactic Acid 1.5 Calcium 8.8 Total Bilirubin 1.10 H AST 65 H ALT 32 Alkaline Phosphatase 56 Troponin I High Sens 7665 H* Total Protein 7.5 Albumin 3.3 Globulin 4.2 Albumin/Globulin Ratio 0.8 L POC Glucose 114 H Radiography Diagnostic Testing: Clinical Impression(s) from Imaging Studies Chest X-Ray 02/26/23 12:45 IMPRESSION: No radiographic evidence of acute cardiopulmonary disease. Electronically Signed: Charly Santa MD at 13:22 EDT , Management Discussion w/another healthcare provider: Hospitalist (Dr. Macias) and Estate Tax Examiner (Dr. Kessler) Discharge Plan Triage Chief Complaint: Weakness ED Provider: Louis Altman Dx/Rx/DC Orders Prescriptions: No Action multivitamin Tablet 1 tab PO DAILY Rx Instructions: takes in the evening acetaminophen 500 mg tablet 500 mg PO BID losartan 50 mg tablet 25 mg PO DAILY latanoprost 0.005 % drops 1 drp ophthalmic (eye) DAILY Rx Instructions: 1 drop each eye acyclovir 400 mg tablet 400 mg PO BID Patient Comments: TAKE 1 TABLET BY MOUTH TWICE A DAY alendronate 70 mg tablet 70 mg PO QWEEK Patient Comments: takes weekly on Saturdays allopurinol 300 mg tablet 300 mg PO DAILY Patient Comments: TAKE 1 TABLET BY MOUTH EVERY DAY Rx Instructions: patient takes in the evening calcitonin (salmon) 200 unit/actuation spray,non-aerosol 1 spray intranasal DAILY Patient Comments: USE 1 SPRAY IN THE NOSE ONCE DAILY. ALTERNATE NOSTRIL EVERY OTHER DAY ibrutinib 420 mg tablet 420 mg PO DAILY diphenhydramine HCl [Allergy (diphenhydramine)] 25 mg capsule 25 mg PO QHS atorvastatin 40 mg Tablet 40 mg PO QHS Qty: 30 0RF aspirin 81 mg Tablet,Delayed Release (Dr/Ec) 81 mg PO DAILY@0800 Qty: 0 0RF carvedilol 6.25 mg Tablet 6.25 mg PO BID Qty: 60 0RF nitroglycerin 0.4 mg Tablet, Sublingual 0.4 mg sublingual Q5M PRN (Reason: Chest Pain) Qty: 10 0RF clopidogrel 75 mg tablet 75 mg PO DAILY Qty: 30 0RF Primary Care Provider: Danay Silva Referrals: Danay Silva MD [Primary Care Provider] -
[2023-02-26 12:38] LABS: Absolute Lymphocyte Count 2.65 X10^3/uL (0.83-4.51); Basophil# 0.07 X10^3/uL; Basophil% 0.6 % (0-1); Eosinophil# 0.11 X10^3/uL; Hemoglobin 14.2 g/dL (13.0-16.5); Lymphocyte # 2.65 X10^3/ul (0.83-4.51); Lymphocyte % 23.9 % (19-41); Mean Corp Hgb Conc 33.8 g/dL (32-36); Mean Corpuscular Hgb 33.8 pg (27.0-32.0); Monocyte# 1.18 X10^3/uL; Monocyte% 10.6 % (0-10); NRBC Flagged by Analyzer 0 % (0-5); Neutrophil # 7.02 X10^3/uL (2.7-7.7); Neutrophil % 63.4 % (47-70); Platelet Count 229 K/mm3 (150-450); RBC Distribution Width CV 13.7 % (11.6-14.6); RBC Distribution Width SD 50.4 fl (35.1-43.9); White Blood Count 11.1 K/mm3 (4.4-11.0)
[2023-02-26 12:39] LABS: Bedside Glucose 114 mg/dL (74-106)
--- NOTE | 2023-02-26 12:45 | RAD_ITS ---
INDICATION: Weakness, nausea, near syncope EXAMINATION/TECHNIQUE: X-RAY - portable AP upright chest x-ray COMPARISON: None. FINDINGS: LINES/DEVICES: None. LUNGS: No consolidation, edema or effusion. No pneumothorax. MEDIASTINUM AND CARDIOVASCULAR STRUCTURES: Cardiac silhouette not enlarged. Central airways and mediastinal contour are unremarkable. BONES AND SOFT TISSUES: No acute findings. RAD/Chest 1 View (Portable) IMPRESSION: No radiographic evidence of acute cardiopulmonary disease. Electronically Signed: Charly Santa MD at 13:22 EDT ,
[2023-02-26 12:58] LABS: ALB/GLOB Ratio 0.8 RATIO (0.9-2.4); AST(SGOT) 65 U/L (15-37); Alanine Aminotransfer ALT/SGPT 32 U/L (16-61); Albumin, Serum 3.3 g/dL (3.2-5.0); Alkaline Phosphatase 56 U/L (45-117); Anion Gap 9 (5-15); BUN 28 mg/dL (7-18); BUN/Creat Ratio 24.8 RATIO (10-20); Calcium,Total 8.8 mg/dL (8.5-10.1); Chloride 106 mmol/L (98-107); Creatinine, Serum 1.13 mg/dL (0.70-1.30); EST Glomerular Filtration Rate 66 mL/min (>60); Est Glom Filt Rate - Afr Amer 80 mL/min (>60); Globulin 4.2 g/dL (2.2-4.2); Glucose 137 mg/dL (74-106); Lactic Acid 1.5 mmol/L (0.4-1.9); Protein, Total 7.5 g/dL (6.4-8.2); Sodium Level 137 mmol/L (136-145); Troponin-I HS 7665 pg/mL (3.0-78.0)
--- NOTE | 2023-02-26 13:27 | NURSING ---
DR MARYAM ALARCON
--- NOTE | 2023-02-26 13:30 | NURSING ---
PCU OBS MARYAM SYNCOPE, TRANSIENT HYPOTENSION, RECENT IL WITH STENT
--- NOTE | 2023-02-26 14:14 | HP.PCM.HOS_ITS ---
HPI - General General Date of Admission: 02/26/23 Date of Service: 02/26/23 Chief Complaint: Syncope HPI Narrative BRE QUIGLEY, is a 83 M who presents with a syncopal episode. Patient was at the pharmacy after just being discharged felt lightheaded and then passed out. Patient eventually came to. Patient brought to the hospital and was found to have elevated troponins that were higher than last checked. Cardiology was notified and stated they could not rule out that is an improvement or not. Did recommend bringing patient and observing him. Patient did have some transient hypotension did receive IV fluids. Currently, the patient is without complaints [facility] Medical History Actinic keratosis Anemia BPH w/o urinary obs/LUTS Cancer Chronic allergic rhinitis Compression fracture of third lumbar vertebra Esotropia Essential hypertension GERD (gastroesophageal reflux disease) Hyperlipidemia Intermittent palpitations Lumbosacral radiculopathy at L5 Multiple premature ventricular complexes Osteoarthritis Seborrheic keratoses Sprain of ligaments of lumbar spine Suspected glaucoma of both eyes Home Medications multivitamin 1 tab PO DAILY supplement 07/18/20 [History Last Taken 02/24/23] acetaminophen 500 mg tablet 500 mg PO BID pain 07/23/20 [History Last Taken ] latanoprost 0.005 % eye drops 1 drp ophthalmic (eye) DAILY eyes 02/23/21 [History Last Taken 02/24/23] losartan 50 mg tablet 25 mg PO DAILY heart 01/26/22 [History Last Taken 02/24/23] acyclovir 400 mg tablet 400 mg PO BID antiviral 02/24/23 [History Last Taken 02/24/23] alendronate 70 mg tablet 70 mg PO QWEEK osteoporosis 02/24/23 [History Last Taken 02/19/23] allopurinol 300 mg tablet 300 mg PO DAILY gout 02/24/23 [History Last Taken 02/23/23] calcitonin (salmon) 200 unit/actuation nasal spray 1 spray intranasal DAILY supplement 02/24/23 [History Last Taken 02/24/23] diphenhydramine HCl 25 mg capsule (Allergy (diphenhydramine)) 25 mg PO QHS sleep aide 02/24/23 [History Last Taken 02/23/23] ibrutinib 420 mg tablet 420 mg PO DAILY chemotherapy 02/24/23 [History Last Taken 02/24/23] aspirin 81 mg tablet,delayed release 81 mg PO DAILY@0800 #0 tabs 02/26/23 [Rx Last Taken Unknown] atorvastatin 40 mg tablet 40 mg PO QHS #30 tabs 02/26/23 [Rx Last Taken Unknown] carvedilol 6.25 mg tablet 6.25 mg PO BID #60 tabs 02/26/23 [Rx Last Taken Unknown] clopidogrel 75 mg tablet 75 mg PO DAILY #30 tabs 02/26/23 [Rx Last Taken Unknown] nitroglycerin 0.4 mg sublingual tablet 0.4 mg sublingual Q5M PRN Chest Pain #10 tabs 02/26/23 [Rx Last Taken Unknown] Allergy/AdvReac Type Severity Reaction Status Date / Time No Known Allergies Allergy Verified 02/24/23 11:37 Family History Father Colon cancer Mother Heart disease Brother Heart disease Surgical History H/O foot surgery H/O hernia repair History of back surgery History of placement of stent in LAD coronary artery (~02/24/23) Social History household members: spouse housing: house Smoking Status: Former smoker pack-years: 8 how long ago did patient quit smokin years ago alcohol intake: current alcohol intake frequency: 0-2 drinks per day Alcohol type: beer substance use type: does not use what type of physical activity do you participate in: other details: gardening, wood working, household repairs do you feel safe at home: Yes Vital Signs Vital Signs Vital Signs: 02/26/23 12:10 02/26/23 12:14 02/26/23 13:08 Temperature 36.6 C Temperature Source Temporal Pulse Rate 63 58 L Respiratory Rate 17 14 Respiratory Effort Normal Non-Labored Blood Pressure 89/63 L 112/63 Blood Pressure Mean 71 79 Pulse Ox 98 97 Oxygen Delivery Method Room Air Room Air 02/26/23 14:02 02/26/23 14:02 Temperature 36.2 C L Temperature Source Temporal Pulse Rate 59 L 59 L Respiratory Rate 18 18 Respiratory Effort Blood Pressure 148/78 H 148/78 H Blood Pressure Mean 101 101 Pulse Ox 98 98 Oxygen Delivery Method Room Air Room Air Weight Weight: 71.3 kg Body Mass Index (BMI) 23.8 Physical Exam Const alert and no apparent distress HEENT normocephalic and head/scalp atraumatic Neuro moves all extremities Sensorium / Orientation: awake and alert Psych affect normal Results Lab / Micro Data Attestation: I reviewed the patient's lab results. 02/26/23 12:13 02/26/23 12:13 Labs: Laboratory Results - last 24 hr 02/26/23 12:13: WBC 11.1 H, RBC 4.20 L, Hgb 14.2, Hct 42.0, MCV 100.0 H, MCH 33.8 H, MCHC 33.8, RDW Std Deviation 50.4 H, RDW Coeff of Saulo 13.7, Plt Count 229, MPV 11.0, Immature Gran % (Auto) 0.500, Neut % (Auto) 63.4, Lymph % (Auto) 23.9, [place] % (Auto) 10.6 H, Eos % (Auto) 1.0, Baso % (Auto) 0.6, Absolute Neuts (auto) 7.0, Absolute Lymphs (auto) 2.65, Nucleated RBC % 0, Sodium 137, Potassium 4.0, Chloride 106, Carbon Dioxide 22.0, Anion Gap 9, BUN 28 H, Creatinine 1.13, Estim Creat Clear Calc 49.60, Est GFR (MDRD) Af Amer 80, Est GFR (MDRD) Non-Af 66, BUN/Creatinine Ratio 24.8 H, Glucose 137 H, Lactic Acid 1.5, Calcium 8.8, Total Bilirubin 1.10 H, AST 65 H, ALT 32, Alkaline Phosphatase 56, Troponin I High Sens 7665 H*, Total Protein 7.5, Albumin 3.3, Globulin 4.2, Albumin/Globulin Ratio 0.8 L 02/26/23 12:20: POC Glucose 114 H EKG Initial EKG: Attestation: I personally reviewed and interpreted this EKG as follows: Prior EKG tracings: available for review EKG Rhythm Intrepretation: Sinus Rhythm Radiology Impression Chest X-Ray 02/26/23 12:45 IMPRESSION: No radiographic evidence of acute cardiopulmonary disease. Electronically Signed: Charly Santa MD at 13:22 EDT Reading Location ID and State: [facility] / [place] Tel , Service support , Assessment & Plan Assessment/Plan (1) Syncope: QUALIFIERS: Syncope type: vasovagal syncope Qualified Code(s): R55 - Syncope and collapse PLAN: Suspect vasovagal or orthostatic Check orthostats Hold losartan for now. Decrease carvedilol for now (2) Transient hypotension: PLAN: Patient did receive IV fluids in the emergency room. Will check orthostatic vital signs and if those are positive we will give patient additional fluids. Would express caution with IV fluids as patient does have an ischemic cardiomyopathy. (3) Elevated troponin: PLAN: Troponins were 7665. Though higher than the previous troponins, it is unclear if these are trending down from the peak the patient may have had earlier from his STEMI. Continue to cycle troponins and if going up, then may need to consider brain cardiology on board PLAN: Plan STEMI (ST elevation myocardial infarction): Patient had been having angina several weeks prior to this. Patient went to the [facility] and had a drug-eluting stent to the proximal LAD. Currently is chest pain-free. Patient has received aspirin, ticagrelor, atorvastatin, carvedilol. Patient will continue with losartan. 2D echocardiogram shows EF of 45-50%. Due to ticagrelor not covered by his insurance formulary, will use clopidogrel, which is covered under his insurance formulary. Cardiomyopathy: EF 45-50% Continue losartan Follow up with cardiology as outpt VTE prophylaxis: Low risk as patient is observation status. CODE STATUS: From prior admission, full code. Charges/Coding Procedures Hospitalists Procedures: Other Procedure - See Report (Nonbillable admission as patient was just discharged earlier today.)
[2023-02-26 17:16] LABS: Troponin-I HS 7265 pg/mL (3.0-78.0)
[2023-02-26] MEDS: Multivitamins,Therapeutic Tablet 1 TABLET PO (17:41)
[2023-02-26] MEDS: Allopurinol 300 MG Tablet PO (17:41)
[2023-02-26 19:26] LABS: Troponin-I HS 6411 pg/mL (3.0-78.0)
[2023-02-26] MEDS: Acyclovir 200 MG Capsule 400 MG PO (21:13)
[2023-02-26] MEDS: Atorvastatin Calcium 40 MG Tablet PO (21:13)
[2023-02-26] MEDS: DiphenhydrAMINE 25 MG Capsule PO (21:13)
[2023-02-26] MEDS: Acetaminophen 500 MG Tablet PO (21:14)
[2023-02-26] MEDS: Latanoprost 0.005% 1 Bottle 1 DRP EACH EYE (21:20)
[2023-02-27 03:51] VITALS: BP 118/66; PULSE 58; RESP 16; TEMP 36.8; O2SAT 98
[2023-02-27] MEDS: IBRUTINIB 420 MG TABLET PO (07:26)
--- NOTE | 2023-02-27 08:30 | PN.HOSP_ITS ---
Reason for Visit Reason for Visit: Diagnoses Hypotension, unspecified (02/26/23) Syncope and collapse (02/26/23) Other specified abnormalities of plasma proteins (02/26/23) Subjective Subjective No events overnight. Objective Data Objective Data Vital Signs: Vital Signs Temp Pulse Resp BP Pulse Ox O2 Del Method 36.8 C 58 L 16 118/66 98 Room Air 02/27/23 03:51 02/27/23 03:51 02/27/23 03:51 02/27/23 03:51 02/27/23 03:51 02/27/23 03:51 Oxygen Delivery Method Room Air Weight: 66.3 kg Body Mass Index (BMI) 22.2 Intake & Output: Intake and Output for Last 24 Hours 02/25/23 02/26/23 02/27/23 23:59 23:59 23:59 Intake Total 1480 / 1480 200 / 200 Balance 1480 / 1480 200 / 200 Lab / Micro Data 02/26/23 12:13 02/26/23 12:13 Labs: Laboratory Results - last 24 hr 02/26/23 12:13: WBC 11.1 H, RBC 4.20 L, Hgb 14.2, Hct 42.0, MCV 100.0 H, MCH 33.8 H, MCHC 33.8, RDW Std Deviation 50.4 H, RDW Coeff of Sauol 13.7, Plt Count 229, MPV 11.0, Immature Gran % (Auto) 0.500, Neut % (Auto) 63.4, Lymph % (Auto) 23.9, [place] % (Auto) 10.6 H, Eos % (Auto) 1.0, Baso % (Auto) 0.6, Absolute Neuts (auto) 7.0, Absolute Lymphs (auto) 2.65, Nucleated RBC % 0, Sodium 137, Potassium 4.0, Chloride 106, Carbon Dioxide 22.0, Anion Gap 9, BUN 28 H, Creatinine 1.13, Estim Creat Clear Calc 49.60, Est GFR (MDRD) Af Amer 80, Est GFR (MDRD) Non-Af 66, BUN/Creatinine Ratio 24.8 H, Glucose 137 H, Lactic Acid 1.5, Calcium 8.8, Total Bilirubin 1.10 H, AST 65 H, ALT 32, Alkaline Phosphatase 56, Troponin I High Sens 7665 H*, Total Protein 7.5, Albumin 3.3, Globulin 4.2, Albumin/Globulin Ratio 0.8 L 02/26/23 12:20: POC Glucose 114 H 02/26/23 16:35: Troponin I High Sens 7265 H* 02/26/23 18:06: Troponin I High Sens 6411 H* Radiography Diagnostic Testing: Radiology Impression Chest X-Ray 02/26/23 12:45 IMPRESSION: No radiographic evidence of acute cardiopulmonary disease. Electronically Signed: Charly Santa MD at 13:22 EDT , Physical Exam Const alert and no apparent distress Constitutional Narrative: telemetry reviewed: no arrhythmias. Neuro Sensorium / Orientation: awake and alert Speech: speech normal Assessment & Plan Assessment/Plan (1) Syncope: QUALIFIERS: Syncope type: vasovagal syncope Qualified Code(s): R55 - Syncope and collapse PLAN: Suspect vasovagal Orthostatic vital signs negative. Hold losartan for now. Decrease carvedilol for now (2) Transient hypotension: PLAN: Resolved Patient did receive IV fluids in the emergency room. Will check orthostatic vital signs and if those are positive we will give patient additional fluids. Would express caution with IV fluids as patient does have an ischemic cardiomyopathy. Losartan held Carvedilol decreased from 6.25 to 3.125. (3) Elevated troponin: PLAN: Initial troponins were 7665, but subsequently tredning down. 2/2 to recent STEMI No new work up at this time. PLAN: Plan STEMI (ST elevation myocardial infarction): Patient had been having angina several weeks prior to this. Patient went to the [facility] and had a drug-eluting stent to the proximal LAD. Currently is chest pain-free. Patient has received aspirin, ticagrelor, atorvastatin, carvedilol. Patient will continue with losartan. 2D echocardiogram shows EF of 45-50%. Due to ticagrelor not covered by his insurance formulary, will use clopidogrel, which is covered under his insurance formulary. Cardiomyopathy: EF 45-50% Follow up with cardiology as outpt CODE STATUS: From prior admission, full code. DC home.
[2023-02-27 10:13] VITALS: BP 124/74; PULSE 65; RESP 14; TEMP 36.3; O2SAT 97
[2023-02-27] MEDS: Acyclovir 200 MG Capsule 400 MG PO (10:16)
[2023-02-27] MEDS: Acetaminophen 500 MG Tablet PO (10:16)
[2023-02-27] MEDS: Carvedilol 3.125 MG TABLET PO (10:17)
[2023-02-27] MEDS: Clopidogrel Bisulfate 75 MG Tablet PO (10:17)
[2023-02-27] MEDS: Aspirin E.C. 81 MG Tablet PO (10:18)
--- NOTE | 2023-02-27 11:05 | DS.PCM_ITS ---
Providers Date of Admission: 02/26/23 Primary Care Physician: Dr. Danay Silva MD Reason For Visit: SYNCOPE Diagnosis Discharge Diagnosis (1) Syncope: Status: Acute Code(s): R55 - Syncope and collapse Qualifiers: Syncope type: vasovagal syncope Qualified Code(s): R55 - Syncope and collapse Plan: Suspect vasovagal Orthostatic vital signs negative. Hold losartan for now. Decrease carvedilol for now (2) Transient hypotension: Status: Acute Code(s): I95.9 - Hypotension, unspecified Plan: Resolved Patient did receive IV fluids in the emergency room. Will check orthostatic vital signs and if those are positive we will give patient additional fluids. Would express caution with IV fluids as patient does have an ischemic cardiomyopathy. Losartan held Carvedilol decreased from 6.25 to 3.125. (3) Elevated troponin: Status: Acute Code(s): R77.8 - Other specified abnormalities of plasma proteins Plan: Initial troponins were 7665, but subsequently tredning down. / to recent STEMI No new work up at this time. Plan STEMI (ST elevation myocardial infarction): Patient had been having angina several weeks prior to this. Patient went to the [facility] and had a drug-eluting stent to the proximal LAD. Currently is chest pain-free. Patient has received aspirin, ticagrelor, atorvastatin, carvedilol. Patient will continue with losartan. 2D echocardiogram shows EF of 45-50%. Due to ticagrelor not covered by his insurance formulary, will use clopidogrel, which is covered under his insurance formulary. Cardiomyopathy: EF 45-50% Follow up with cardiology as outpt CODE STATUS: From prior admission, full code. DC home. Medications at Discharge Home Medications multivitamin 1 tab PO DAILY supplement 07/18/20 acetaminophen 500 mg tablet 500 mg PO BID pain 07/23/20 latanoprost 0.005 % eye drops 1 drp ophthalmic (eye) DAILY eyes 02/23/21 acyclovir 400 mg tablet 400 mg PO BID antiviral 02/24/23 alendronate 70 mg tablet 70 mg PO QWEEK osteoporosis 02/24/23 allopurinol 300 mg tablet 300 mg PO DAILY gout 02/24/23 calcitonin (salmon) 200 unit/actuation nasal spray 1 spray intranasal DAILY supplement 02/24/23 diphenhydramine HCl 25 mg capsule (Allergy (diphenhydramine)) 25 mg PO QHS sleep aide 02/24/23 ibrutinib 420 mg tablet 420 mg PO DAILY chemotherapy 02/24/23 aspirin 81 mg tablet,delayed release 81 mg PO DAILY@0800 #0 tabs 02/26/23 atorvastatin 40 mg tablet 40 mg PO QHS #30 tabs 02/26/23 clopidogrel 75 mg tablet 75 mg PO DAILY #30 tabs 02/26/23 nitroglycerin 0.4 mg sublingual tablet 0.4 mg sublingual Q5M PRN Chest Pain #10 tabs 02/26/23 carvedilol 3.125 mg tablet 3.125 mg PO BID #60 tabs 02/27/23 Hospital Course Operations None Procedures None Summary of Care Provided Minutes Spent on Discharge: 28 Hospital Course: Patient had a syncopal episode while waiting for his medications after his recent hospitalization for ST elevation myocardial infarction. Patient was transiently hypotensive did receive IV fluids. Orthostatics were checked afterwards noted when were negative. Patient was observed overnight to make sure he did not have any arrhythmias, which he did not. Blood pressure remained stable. Patient's losartan will be held for the time being and his carvedilol being decreased from 6.25-3.125. Weight / BMI Weight Weight: 66.3 kg Body Mass Index (BMI) 22.2 ABG / Lab / Microbiology Data 02/26/23 12:13 02/26/23 12:13 Laboratory: Laboratory Results - last 24 hr 02/26/23 12:13: WBC 11.1 H, RBC 4.20 L, Hgb 14.2, Hct 42.0, MCV 100.0 H, MCH 33.8 H, MCHC 33.8, RDW Std Deviation 50.4 H, RDW Coeff of Saulo 13.7, Plt Count 229, MPV 11.0, Immature Gran % (Auto) 0.500, Neut % (Auto) 63.4, Lymph % (Auto) 23.9, [place] % (Auto) 10.6 H, Eos % (Auto) 1.0, Baso % (Auto) 0.6, Absolute Neuts (auto) 7.0, Absolute Lymphs (auto) 2.65, Nucleated RBC % 0, Sodium 137, Potassium 4.0, Chloride 106, Carbon Dioxide 22.0, Anion Gap 9, BUN 28 H, Creatinine 1.13, Estim Creat Clear Calc 49.60, Est GFR (MDRD) Af Amer 80, Est GFR (MDRD) Non-Af 66, BUN/Creatinine Ratio 24.8 H, Glucose 137 H, Lactic Acid 1.5, Calcium 8.8, Total Bilirubin 1.10 H, AST 65 H, ALT 32, Alkaline Phosphatase 56, Troponin I High Sens 7665 H*, Total Protein 7.5, Albumin 3.3, Globulin 4.2, Albumin/Globulin Ratio 0.8 L 02/26/23 12:20: POC Glucose 114 H 02/26/23 16:35: Troponin I High Sens 7265 H* 02/26/23 18:06: Troponin I High Sens 6411 H* Radiography Diagnostic Testing: Radiology Impression Chest X-Ray 02/26/23 12:45 IMPRESSION: No radiographic evidence of acute cardiopulmonary disease. Electronically Signed: Charly Santa MD at 13:22 EDT Reading Location ID and State: [address] [place] [address] Tel , Service support , D/C Instructions Discharge Diet: Low fat / Low cholesterol Call your doctor if you observe: Shortness of breath, Fainting spells and Chest pain Meaningful Use Info Meaningful Use Diagnoses (Choose all that apply): None applicable Discharge Plan Admission Admit Date/Time: 02/26/23 13:26 Primary Reason for Your Visit: syncope Attending Provider: Andrés Macias Primary Care Provider: Danay Silva Instructions Additional Instructions / Restrictions: You had a syncopal episode. Slowly resume your routine. Discharge Orders/Prescriptions Prescriptions: New carvedilol 3.125 mg Tablet 3.125 mg PO BID Qty: 60 0RF Continued multivitamin Tablet 1 tab PO DAILY Rx Instructions: takes in the evening acetaminophen 500 mg tablet 500 mg PO BID latanoprost 0.005 % drops 1 drp ophthalmic (eye) DAILY Rx Instructions: 1 drop each eye acyclovir 400 mg tablet 400 mg PO BID Patient Comments: TAKE 1 TABLET BY MOUTH TWICE A DAY alendronate 70 mg tablet 70 mg PO QWEEK Patient Comments: takes weekly on Saturdays allopurinol 300 mg tablet 300 mg PO DAILY Patient Comments: TAKE 1 TABLET BY MOUTH EVERY DAY Rx Instructions: patient takes in the evening calcitonin (salmon) 200 unit/actuation spray,non-aerosol 1 spray intranasal DAILY Patient Comments: USE 1 SPRAY IN THE NOSE ONCE DAILY. ALTERNATE NOSTRIL EVERY OTHER DAY ibrutinib 420 mg tablet 420 mg PO DAILY Patient Comments: HAS NOT HAD SINCE TUESDAY, FAMILY TO BRING TO HOSPITAL THIS ADMISSION diphenhydramine HCl [Allergy (diphenhydramine)] 25 mg capsule 25 mg PO QHS atorvastatin 40 mg Tablet 40 mg PO QHS Qty: 30 0RF Patient Comments: NEW MEDICATION, HAS NOT OFFICIALLY BEGAN aspirin 81 mg Tablet,Delayed Release (Dr/Ec) 81 mg PO DAILY@0800 Qty: 0 0RF nitroglycerin 0.4 mg Tablet, Sublingual 0.4 mg sublingual Q5M PRN (Reason: Chest Pain) Qty: 10 0RF Patient Comments: NEW MED, HAS NOT BEGAN THERAPY clopidogrel 75 mg tablet 75 mg PO DAILY Qty: 30 0RF Patient Comments: NEW MED, HAS NOT BEGAN THERAPY Discontinued losartan 50 mg tablet 25 mg PO DAILY carvedilol 6.25 mg Tablet 6.25 mg PO BID Qty: 60 0RF Patient Comments: NEW MED, HASN'T BEGAN THERAPY Referrals / Follow Up: Danay Silva MD [Primary Care Provider] - Charges/Coding Visit Charges Inpatient E&M: 05741 Disch Hosp
== END 2023-02-27 12:22 | disposition home or self-care (01) ==
LOC: ED 13:49 → PCU 15:15
PROVIDERS: Emergency Provider Emergency Medicine; PCP Internal Medicine
DX: R55 Syncope and collapse (principal); I21.4 Non-ST elevation (NSTEMI) myocardial infarction; R53.1 Weakness; Z87.891 Personal history of nicotine dependence; Z95.5 Presence of coronary angioplasty implant and graft; I10 Essential (primary) hypertension; E78.5 Hyperlipidemia, unspecified; K21.9 Gastro-esophageal reflux disease without esophagitis; N40.1 Benign prostatic hyperplasia with lower urinary tract symptoms; N13.8 Other obstructive and reflux uropathy; Z79.899 Other long term (current) drug therapy; Z79.02 Long term (current) use of antithrombotics/antiplatelets; R77.8 Other specified abnormalities of plasma proteins
CPT/HCPCS: 36415; 71045; 80053; 82962; 83605; 84484; 85025; 93005; 99285; A4216

== ENCOUNTER → 2023-03-09 | Outpatient (CLI) | payer MEDICARE, SELFPAY ==
--- NOTE | 2023-03-09 13:00 | PCM.CR.HP2 ---
CR - History & Physical General Arrival date:: 03/09/23 Arrival time:: 13:01 Date of Referral:: 02/25/23 Date of CR Evaluation:: 03/09/23 Referring Physician: Dr. Nicanor Mojica Primary Diagnosis: PCI with stent, STEMI History of Present Cardiac Event Onset Date PTCA or coronary stenting:: Yes Vessel: LAD Medications Ambulatory Orders Medication Instructions Recorded multivitamin 1 tab PO DAILY supplement 07/18/20 acetaminophen 500 mg tablet 500 mg PO BID pain 07/23/20 latanoprost 0.005 % eye drops 1 drp ophthalmic (eye) DAILY eyes 02/23/21 acyclovir 400 mg tablet 400 mg PO BID antiviral 02/24/23 alendronate 70 mg tablet 70 mg PO QWEEK osteoporosis 02/24/23 allopurinol 300 mg tablet 300 mg PO DAILY gout 02/24/23 calcitonin (salmon) 200 1 spray intranasal DAILY supplement 02/24/23 unit/actuation nasal spray diphenhydramine HCl 25 mg capsule 25 mg PO QHS sleep aide 02/24/23 (Allergy (diphenhydramine)) ibrutinib 420 mg tablet 420 mg PO DAILY chemotherapy 02/24/23 aspirin 81 mg tablet,delayed 81 mg PO DAILY@0800 heart health 02/26/23 release #0 tabs atorvastatin 40 mg tablet 40 mg PO QHS cholesterol #30 tabs 02/26/23 clopidogrel 75 mg tablet 75 mg PO DAILY anti platelet #30 02/26/23 tabs nitroglycerin 0.4 mg sublingual 0.4 mg sublingual Q5M PRN Chest 02/26/23 tablet Pain #10 tabs carvedilol 3.125 mg tablet 3.125 mg PO BID #60 tabs 02/27/23 Allergies Allergies No Known Allergies Allergy (Verified 02/24/23 11:37) Sleep Disorder Evaluation Hx of Sleep Apnea: No Do you snore loudly (louder than talking or can be heard through closed doors)?: No Do you often feel tired/ fatigued/ sleepy during daytime?: No Has anyone observed you stop breathing during sleep?: No History of Hypertension (for STOP score): Yes STOP Results: Negative Advanced Directives Advanced Directives Power of Feed Elevator Worker: Yes Living Will: Yes Advance Directives Information Provided: Yes Advance Directives on File: Yes DNR Order?:: No Past Medical History Covid-19 Screening Physicial Symptoms Other Clinical Concerns Exposure Risk Pertinent Comorbidities 65 years or older:: Yes Has a serious heart condition:: Yes Past Medical Illness Medical History Actinic keratosis Anemia BPH w/o urinary obs/LUTS Cancer Chronic allergic rhinitis Compression fracture of third lumbar vertebra Esotropia Essential hypertension GERD (gastroesophageal reflux disease) Hyperlipidemia Intermittent palpitations Lumbosacral radiculopathy at L5 Multiple premature ventricular complexes Osteoarthritis Seborrheic keratoses Sprain of ligaments of lumbar spine Suspected glaucoma of both eyes Past Surgical History Surgical History H/O foot surgery H/O hernia repair History of back surgery History of placement of stent in LAD coronary artery (~02/24/23) Family History Summary Family History Father Colon cancer Mother Heart disease Brother Heart disease Social History Smoking History Smoking Status: Former smoker Years Smokin Packs Smoked per Day: 1 (stopped 1976) Alcohol Use Alcohol Usage: No Occupation Occupation (List type of work in comments):: Retired Hobbies, Recreation, Social Activities Hobbies: Woodworking and Reading Recreational Activities: I am able to engage in all my recreational activities Social Environment Status Marital Status: Current Living Arrangements Living Environment:: Spouse Children How many children do you have?: 0 Safety Do you feel safe in your surroundings?: Yes Assistance Do you need any assistance at home?: no Review of Systems Review of Systems Hints Review of Present Symptoms: Reports Fatigue, Appetite - Normal, Appetite - Special Diet and Sleep - Normal; Denies Shortness of Breath at Rest, Shortness of Breath with Exertion, PVD, Operative Discomfort, Angina, Wound Healing, Dizziness/Lightheadedness, Heart Arrhythmia/Irregularities or Sexual Changes Pain Pain Location: back Pain Level: 8/10 Risk Factor Assessment Vital Signs Pulse Ox: 97 Blood Pressure: 162/78 Pulse Pulse Rate: 57 Pulse Rhythm: Regular Hypertension How long have you been treated?: 12 years Stress Stress: Home/Family Obesity Height: 5 ft 8 in Weight:: 159 lb Weight in Pounds: 159.0 lbs Body Mass Index (BMI): 24.1 Nutritional Referral for Obesity: No (declines) Physical Inactivity Physical Inactivity: None Risk Stratification Risk Guidelines: Lowest Risk: Risk Factor for Smoking and Risk Factor for Obesity, Moderate Risk: Risk Factor for Sedentary Lifestyle and Risk Factor for Depression and Highest Risk: Risk Factor for Dyslipidemia, Risk Factor for Diabetes and Risk Factor for Hypertension For Smoking Smoking Risk Guidelines For Dyslipidemia Dyslipidemia Risk Guidelines For Diabetes Mellitus Diabetes Risk Guidelines For Obesity/Overweight Obesity/Overweight Risk Guidelines For Hypertension Hypertension Risk Guidelines For Sedentary Lifestyle Sedentary Lifestyle Risk Guidelines For Depression Depression Risk Guidelines Family History Family History Father Colon cancer Mother Heart disease Brother Heart disease Motivation Motivation to Participate On a scale of 1 to 10, how prepared are you to commit to attending program?: 5 What do you see as barriers to successfully being able to complete the program?: bad back What do you see as the benefits of succesfully completing the program? In other words, what do you hope to get out of participating in the program?: stronger, more energy Are there issues you are dealing with that will interfere with completing the program?: bad back Do you have a spouse or signficant other, family or friends who will help support you to complete the program?: yes
--- NOTE | 2023-03-09 13:11 | PCM.CR.ITP ---
Diagnosis General Information Admitting Diagnosis: PCI with stent, STEMI Personal Learning Style:: Audio/Visual Stage of change r/t lifestyle modifications:: Contemplation Gave educational material for:: Treating Heart Disease, How The Heart Works, What it means to have Heart Disease, How Coronary Artery Disease is Diagnosed, Heart Procedures, What Heart Medications Do, Risk Factors & Modifications, Living an Active Life, Nutrition, Emotions & Heart Disease, Stress Management & Relaxation and Sleep Disorders & Heart Disease Education/Goals Cardiac Rehabilitation Goals Personal Goals: Initial Assessment: Improve energy level, Participate in home exercise program, Improve knowledge of cardiac disease, Improve muscle strength and endurance, Improve diet and eating habits (eat healthier) and Control risk factors (learn risk factor modification) Scale for measuring improvement of personal goals Diagnosis & Disease Process Outcomes/Goals: Pt IDs own risk factors & lifestyle modifications by Session 10, Verbalizes symptoms of angina & response by session 3., Pt independently manages and Other Additional Outcomes/Goals: Plan/Interventions: Assist Pt to ID & engage in lifestyle modification to reduce CVD risk, Instruct on individual risk factors, Review symptoms of angina & emergency actions, Review secondary diagnosis & identify educational needs. and Other see comment 30 day Reassessments:: Not Met 30 day Reassessments:: Not Met 30 day Reassessments:: Not Met 30 day Reassessments:: Not Met Final Reassessments:: Not Met Safety Referral to Physical Therapy: No Fall Risk Assessed:: Yes Assistive Devices:: None Exercise - Initial Assessment Visit Date of Eval: 03/09/23 (initial eval ) Mets: Pre-: >3 METS for 30 minutes by discharge, >5 METS for 30 minutes by discharge, >7 METS for 30 minutes by discharge and Unable to meet goal due to: (see comment below) Physician Prescribed Exercise Modalities: Treadmill, Rower, Airdyne, NuStep, SciFit and Lateral [place] Frequency: 2x/week for 18 weeks [36 sessions] and 3x/week for 12 weeks [36 sessions] Intensity: 60-80% of age predicted maximum heart rate reserve Duration: 30 - 45 minutes Current METSs:: 3 Target Heart Rate:: 83-103 Resting Blood Pressure: 162/78 EKG Type: SR W/ Twave abnormality Current Physical Activity or Exercising minutes: pt has fracture of 3rd lumbar vert and must exercise with caution Outcomes & Goals Goals:: Verbalizes understanding of THR, RPE & goal METS by session 6, Documents in home exercise log/reports 30 min aerobic 5 day/wk by DC, Demonstrates accurate pulse taking by DC and Other additional outcome/goals: see below Intervention & Plan Exercise Program Goals: Instruct on personal THR & RPE, Instruct on MET level & personal MET goal, Show patient to take own pulse /validate performance until accurate, Instruct on home exercise and Other additional plan/int Physical Activity Home Exercise Physical Activity - Home Exercise: Safe Exercise, Warm-up, Self-monitoring, Cool-Down, Home Exercise > 30 min Daily and Sitting Time <3 hours/daily Outcomes & Goals Outcomes/Goals: Demonstrates correct Warm-up/exercise Cool-Down (S3) if = 2.5 METs, Verbalizes symptoms of exercise intolerance by Session 3 (S3), Demonstrate safe equipment use (S3) & follows exercise prescrition (6) and Other: See below Intervention & Plan Plan/Intervention: Instruct warm-up & cool-down if exercising at > 2 METs, Instruct on symptoms of exercise intolerance & actions to take, Instruct & monitor on saf, Assess intial functional capacity & safety risk and Other See below Nutrition - Initial Assessment Program Goals Nutrition Program Goals Patient has diagnosis of Hyperlipidemia (ICD E78)?: Yes Visit Date of Eval: 03/09/23 (initial eval ) Cholesterol/Lipids (Other Core Measures) Determine presence & major risk factors that modify LDL goal: Cigarette smoking, Hypertension or hypertensive medication, Low HDL cholesterol <40 mg/dL*, Family history of premature CHD in Male < 55 years: female <65 yearsFa and Age men > 45 years; women >/= 55 years Outcomes/Goals: Pt IDs own risk factors & lifestyle modifications by Session 10, Verbalizes symptoms of angina & response by session 3., Pt independently manages and Other Additional Outcomes/Goals: Intervention/Plan: Advocate for lipid panel cholesterol medication if applicable, Instruct on personal lipid levels & lipid goals/NCEP guidelines, Instruct on cholesterol and Other additional plan/int Referral to dietitian:: No (declines) Diabetes (Other Core Measures) Diabetes Type: Not Applicable Weight Mgt (Other Care) Height: 5 ft 9 in Weight:: 159 lb BMI: 23.4 Diagnosis Overweight/Obesity BMI> 30% ICD-10 E66: No Diagnosis High BMI/Morbid Obesity BMI> 35% ICD-10 Z68: No Outcomes/Goals: Pt sets, maintains & shows weight loss goal & trend during rehab and Other additional outcomes/goals Intervention/Plan: Instruct on ideal BMI & set weight loss goal w/patient, Assist pt to ID & incorporate diet changes for weight loss by S9, Refer to Structured Weight Loss program as appropriate, Encourage goal of using 250-300dcal per session for weight loss and Other additional plan/interventions Healthy Eating Habits Will attend diet classes:: Yes Outcomes/Goals:: Consume diet rich in vegs,fruits,whole grain/high fiber,fish,lean meat, Limit sat/trans fats,cholesterol & added salts & sugars and Other additional outcome/goals: Intervention/Plan:: Assess current eating habits and Other Additional plan/interventions Education Gave educational materials for:: Signs & symptoms of hypoglycemia, Signs & symptoms of hyperglycemia, Relate diabetes to coronary artery disease and Healthy eating Core - Initial Assessment Visit Date of Eval: 03/09/23 (initial eval ) Medication Compliance Preventative Medication(s):: Aspirin, Clopidogrel/P2Y12 inhibit, Statin/lipid, Beta freddie and ARB (Angiotensi Rcap) H/O mental health issues: depression, anxiety, or addiction?: No Doesn?t believe in the benefits of treatment?: No Believes medications are unnecessary or harmful?: No Has a concern about medication side effects?: No Expresses concern over the cost of medications?: No Outcomes/Goals: Verbalizes medications,desired effect & common side effects @ DC, Pt self-reports following medication regimen, Keeps card in wallet w/medications listed by DC and Other additional outcome/goals: Interventions/plans: Instruct on medication effects & side effects, Review medication list w/patient every two weeks, Instruct importance of taking meds as ordered & assist problem solving and Other additional Tobacco Use Tobacco Use: Non-smoker How long ago did you quit using tobacco products?: Greater than or equal to 6 months ago Hypertension Hypertension Diagnosis:: Hypertension ICD-10 I10 Resting Blood Pressure:: 162/78 [place] [employer] Hypertension Guidelines Outcomes/Goals: Able to verbalize/achieve optimal blood pressure <130/80, Incorporates diet changes & exercise for blood pressure control by DC and Other additional outcomes/goals Interventions/plan: Instruct on optimal blood pressure, hypertension & medications, Instruct on effects of sodium, alcohol, stress, exercise &hypertension and Other additional plan/interventions Tobacco Cessation Referral Smoking Cessation Referral:: No Individual Education/Counseling:: No Education Schedule Given:: Yes Psychosocial - Initial Assess VIsit Date of Eval: 03/09/23 (initial eval ) History of previous Mental disease:: No Target Goals Target Goals Outcomes/Goals: See list Psychosocial Outcomes/Goals:: ID's personal stressors & 2 strategies to manage stress by discharge and Other Additional outcome/goals: Intervention/Plan: See List Interventions/Plan:: Assess stressors,coping strategies & signs of derpression on admission, Instruct/assist pt to develop coping & personal stress Mgt strategies, Refer to Behavioral Health if appropriate, Refer to Physician if appropriate, Instruct patient to recognize signs & symptoms of depression, Instruct patient to recog and Other additional plan/intervention Patient Health Questionnaire PHQ-9 Screening Initial Assessment: 1. Little interest or pleasure in doing things: Not at all 2. Feeling down, depressed, or hopeless: Not at all 3. Trouble falling or staying asleep, or sleeping too much: Not at all 4. Feeling tired or having little energy: Nearly every day 5. Poor appetite or overeating: More than half the days 6. Feeling bad about yourself -- or that you are a failure or have let yourself or your family down: Not at all 7. Trouble concentrating on things, such as reading the newspaper or watching television: Not at all 8. Moving or speaking so slowly that other people could have noticed. Or the opposite - being so fidgety or restless that you have been moving around a lot more than usual: Not at all 9. Thoughts that you would be better off , or of hurting yourself in some way: Not at all How difficult have these problems made it for you to do your work, take care of things at home, or get along with other people?: Somewhat difficult Total Score: 5 MARIAJOSE-Q SV Test Statements CAD is a disease of the arteries in the heart: False Examples of risk factors for heart disease: True Angina is chest pain or discomfort: True The benefits of resistance training include: True Eating more meat and dairy products: False Anti-platelet medications such as aspirin are important: True The only effective way to manage stress: False An exercise warm-up slowly increases heart rate: True Prepared, processed foods usually have high sodium: True Depression is common after a heart attack: True The statin medications lower cholesterol: True To control blood pressure, lower the amount of sodium: True If someone gets chest discomfort during walking: False Transfats are partially hydrogenated vegetable oils: True Sleep apnea that is not treated increases the risk: True To control cholesterol, one should become a vegetarian: False Someone knows if he/she is exercising at the right level: True Diabetes cannot be prevented with exercise & health eating: I Don't Know Stress is a large risk for heart attack: True A diet that can help lower blood pressure is rich in: True Total Score Total Correct Responses: 18 Self-Efficacy 6-Item Scale Initial Assessment: We would like to know how confident you are in doing certain activities. Please select your confidence level for: Fatigue Select Number: 8 Physical Discomfort or Pain Select Number: 8 Emotional Distress Select Number: 9 Other Symptoms or Health Problems Select Number: 9 Different Tasks and Activities Select Number: 6 Medication Select Number: 9 Total Score:: 8 Nutrition Survey Nutrition Survey Instructions Scoring Instructions Nutrition Survey Initial: Have you lost >10 lbs over the past 2 months without trying?: No Are you following a special diet at home for diabetes, low fat, or low salt?: Yes Are you interested in meeting with a dietitian for help understanding your diet?: No Do you eat less than 3 meals a day?: No Do you eat fatty meats (maharaj, sausage, ribs, etc), fried foods, desserts, large amounts of salad dressings, margarine, butter, or cheese most days?: No Do you eat in restaurants more than 3 times a week?: No Do you season food with salt, seasoning salt, or garlic salt?: Yes Do you used canned, boxed, frozen meals, or soups, seasoning packets?: Yes Exercise - Final/Discharge Physician Prescribed Exercise Modalities: Treadmill, Rower, Airdyne, NuStep, SciFit and Lateral [place] Frequency: 2x/week for 18 weeks [36 sessions] and 3x/week for 12 weeks [36 sessions] Intensity: 60-80% of age predicted maximum heart rate reserve Current METSs:: 3 Target Heart Rate:: 83-103 Nutrition - 30-Day Assessment Weight Mgt (Other Care) Height: 5 ft 9 in Weight:: 159 lb BMI: 23.4 Nutrition - 60-Day Assessment Weight Mgt (Other Care) Height: 5 ft 9 in Weight:: 159 lb BMI: 23.4 Core - Final Assessment Hypertension Resting Blood Pressure:: 162/78 [place] [employer] Hypertension Guidelines Core - 60-Day Assessment Hypertension Resting Blood Pressure:: 162/78 [place] [employer] Hypertension Guidelines Psychosocial - 30-Day Assess Target Goals Target Goals Psychosocial - 60-Day Assess Target Goals Target Goals Psychosocial - 90-Day Assess Target Goals Target Goals Psychosocial - Final Assessmen Target Goals Target Goals Nutrition - 90-Day Assessment Weight Mgt (Other Care) Height: 5 ft 9 in Weight:: 159 lb BMI: 23.4 Nutrition - Final Assessment Program Goals Patient has diagnosis of Hyperlipidemia (ICD E78)?: Yes Weight Mgt (Other Care) Height: 5 ft 9 in Weight:: 159 lb BMI: 23.4
[2023-03-09 13:32] VITALS: PULSE 57; O2SAT 97; BMI 24.1
[2023-03-09 13:40] VITALS: BP 162/78
[2023-03-09 14:03] VITALS: BMI 23.4
[2023-03-09 14:12] VITALS: BP 162/78
== END | disposition home or self-care (01) ==
LOC: CR 12:54
PROVIDERS: PCP Internal Medicine; Referring Provider Internal Medicine Cardiovascular Disease; Visit Provider Internal Medicine Cardiovascular Disease
DX: Z00.00 Encounter for general adult medical examination without abnormal findings (principal)

== ENCOUNTER 2023-03-25 14:30 | Outpatient (RCR) | payer MEDICARE, SELFPAY ==
[2023-03-09 14:03] VITALS: BMI 23.4
== END 2023-03-26 23:59 ==
LOC: CR 14:30
PROVIDERS: PCP Internal Medicine; Referring Provider Internal Medicine Cardiovascular Disease; Visit Provider Internal Medicine Cardiovascular Disease
DX: I21.02 ST elevation (STEMI) myocardial infarction involving left anterior descending coronary artery (principal); Z95.5 Presence of coronary angioplasty implant and graft
CPT/HCPCS: 93798

== ENCOUNTER 2023-04-25 14:30 | Outpatient (RCR) | payer MEDICARE, SELFPAY ==
[2023-03-09 14:03] VITALS: BMI 23.4
--- NOTE | 2023-04-08 08:46 | PCM.CR.ITP ---
Exercise - Initial Assessment Visit Session #:: 9 Nutrition - Initial Assessment Weight Mgt (Other Care) Height: 5 ft 9 in Weight:: 154 lb BMI: 22.7 Psychosocial - Initial Assess Target Goals Target Goals Patient Health Questionnaire PHQ-9 Screening 30-Day Re-eval Assessment: 1. Little interest or pleasure in doing things: Not at all 2. Feeling down, depressed, or hopeless: Not at all 3. Trouble falling or staying asleep, or sleeping too much: Not at all 4. Feeling tired or having little energy: Nearly every day 5. Poor appetite or overeating: More than half the days 6. Feeling bad about yourself -- or that you are a failure or have let yourself or your family down: Not at all 7. Trouble concentrating on things, such as reading the newspaper or watching television: Not at all 8. Moving or speaking so slowly that other people could have noticed. Or the opposite - being so fidgety or restless that you have been moving around a lot more than usual: Not at all 9. Thoughts that you would be better off , or of hurting yourself in some way: Not at all How difficult have these problems made it for you to do your work, take care of things at home, or get along with other people?: Somewhat difficult Total Score: 5 Self-Efficacy 6-Item Scale 30-Day Re-eval Assessment: We would like to know how confident you are in doing certain activities. Please select your confidence level for: Fatigue Select Number: 8 Physical Discomfort or Pain Select Number: 8 Emotional Distress Select Number: 9 Other Symptoms or Health Problems Select Number: 9 Different Tasks and Activities Select Number: 6 Medication Select Number: 9 Total Score:: 8 Nutrition Survey Nutrition Survey Instructions Scoring Instructions Exercise - 30-day Assessment Visit Date of Eval: 04/08/23 Session #:: 9 Physician Prescribed Exercise Modalities: Treadmill and NuStep Frequency: 3x/week for 12 weeks [36 sessions] Intensity: 60-80% of age predicted maximum heart rate reserve Duration: 30 - 45 minutes Current METSs:: 3 Target Heart Rate:: 83-103 Current RPE:: 13-14 Maximum Excercise HR:: 82 Resting Blood Pressure: 174/80 Maximum Exercise Blood Pressure: 180/88 EKG Type: NSR with rare occas pac's, pvc's. Atrial couplet and triplet noted Outcomes & Goals Goals:: Verbalizes understanding of THR, RPE & goal METS by session 6, Documents in home exercise log/reports 30 min aerobic 5 day/wk by DC, Demonstrates accurate pulse taking by DC and Other additional outcome/goals: see below Intervention & Plan Exercise Program Goals: Instruct on personal THR & RPE, Instruct on MET level & personal MET goal, Show patient to take own pulse /validate performance until accurate, Instruct on home exercise and Other additional plan/int 30-day Reassessments 30 day Reassessments:: Progressing Reassessment Notes & Comments:: RPE explained Physical Activity Home Exercise Physical Activity - Home Exercise: Safe Exercise, Warm-up, Self-monitoring, Cool-Down, Home Exercise > 30 min Daily and Sitting Time <3 hours/daily Outcomes & Goals Outcomes/Goals: Demonstrates correct Warm-up/exercise Cool-Down (S3) if = 2.5 METs, Verbalizes symptoms of exercise intolerance by Session 3 (S3), Demonstrate safe equipment use (S3) & follows exercise prescrition (6) and Other: See below Intervention & Plan Plan/Intervention: Instruct warm-up & cool-down if exercising at > 2 METs, Instruct on symptoms of exercise intolerance & actions to take, Instruct & monitor on saf, Assess intial functional capacity & safety risk and Other See below 30-day Reassessments 30 day Reassessments:: Progressing Reassessment Notes & Comments:: warm up encouraged Nutrition - 30-Day Assessment Program Goals Nutrition Program Goals Patient has diagnosis of Hyperlipidemia (ICD E78)?: Yes Visit Date of Eval: 04/08/23 Session #:: 9 Cholesterol/Lipids (Other Core Measures) Determine presence & major risk factors that modify LDL goal: Hypertension or hypertensive medication, Low HDL cholesterol <40 mg/dL*, Family history of premature CHD in Male < 55 years: female <65 yearsFa and Age men > 45 years; women >/= 55 years Outcomes/Goals: Pt IDs own risk factors & lifestyle modifications by Session 10, Verbalizes symptoms of angina & response by session 3., Pt independently manages and Other Additional Outcomes/Goals: Intervention/Plan: Advocate for lipid panel cholesterol medication if applicable, Instruct on personal lipid levels & lipid goals/NCEP guidelines, Instruct on cholesterol and Other additional plan/int 30-day Reassessments:: Progressing Reassessment Notes & Comments:: risk factors reviewed Diabetes (Other Core Measures) Diabetes Type: Not Applicable Weight Mgt (Other Care) Height: 5 ft 9 in Weight:: 154 lb BMI: 22.7 Diagnosis Overweight/Obesity BMI> 30% ICD-10 E66: No Diagnosis High BMI/Morbid Obesity BMI> 35% ICD-10 Z68: No Outcomes/Goals: Pt sets, maintains & shows weight loss goal & trend during rehab and Other additional outcomes/goals Intervention/Plan: Instruct on ideal BMI & set weight loss goal w/patient, Assist pt to ID & incorporate diet changes for weight loss by S9, Refer to Structured Weight Loss program as appropriate, Encourage goal of using 250-300dcal per session for weight loss and Other additional plan/interventions 30 day Reassessments:: Met Healthy Eating Habits Will attend diet classes:: Yes Outcomes/Goals:: Consume diet rich in vegs,fruits,whole grain/high fiber,fish,lean meat, Limit sat/trans fats,cholesterol & added salts & sugars and Other additional outcome/goals: Intervention/Plan:: Assess current eating habits and Other Additional plan/interventions 30-day Reassessments:: Progressing Reassessment Notes & Comments:: pt to attend nutrition class Education Gave educational materials for:: Signs & symptoms of hypoglycemia, Signs & symptoms of hyperglycemia, Relate diabetes to coronary artery disease and Healthy eating Nutrition - 60-Day Assessment Weight Mgt (Other Care) Height: 5 ft 9 in Weight:: 154 lb BMI: 22.7 Core - 30-Day Assessment Visit Date of Eval: 04/08/23 Session #:: 9 Medication Compliance Preventative Medication(s):: Aspirin, Clopidogrel/P2Y12 inhibit, Statin/lipid, Beta freddie and ARB (Angiotensi Rcap) H/O mental health issues: depression, anxiety, or addiction?: No Doesn?t believe in the benefits of treatment?: No Believes medications are unnecessary or harmful?: No Has a concern about medication side effects?: No Expresses concern over the cost of medications?: No Outcomes/Goals: Verbalizes medications,desired effect & common side effects @ DC, Pt self-reports following medication regimen, Keeps card in wallet w/medications listed by DC and Other additional outcome/goals: Interventions/plans: Instruct on medication effects & side effects, Review medication list w/patient every two weeks, Instruct importance of taking meds as ordered & assist problem solving and Other additional 30-day Reassessments:: Progressing Reassessment Notes & Comments:: Losartan increased to 25 mg, Coreg increased but pt is unsure of dose Tobacco Use Tobacco Use: Non-smoker Hypertension Hypertension Diagnosis:: Hypertension ICD-10 I10 Resting Blood Pressure:: 174/80 [place] [employer] Hypertension Guidelines Peak Exercise Blood Pressure:: 180/88 Outcomes/Goals: Able to verbalize/achieve optimal blood pressure <130/80, Incorporates diet changes & exercise for blood pressure control by DC and Other additional outcomes/goals Interventions/plan: Instruct on optimal blood pressure, hypertension & medications, Instruct on effects of sodium, alcohol, stress, exercise &hypertension and Other additional plan/interventions 30 day Reassessments:: Progressing Reassessment Notes & Comments:: Losartan increased to 25 mg, Coreg increased but pt is unsure of dose Tobacco Cessation Referral Smoking Cessation Referral:: No Individual Education/Counseling:: No Education Schedule Given:: Yes Psychosocial - 30-Day Assess VIsit Date of Eval: 04/08/23 Session #:: 9 History of previous Mental disease:: No Target Goals Target Goals Psychosocial - 60-Day Assess Target Goals Target Goals Psychosocial - 90-Day Assess Target Goals Target Goals Psychosocial - Final Assessmen Target Goals Target Goals Nutrition - 90-Day Assessment Weight Mgt (Other Care) Height: 5 ft 9 in Weight:: 154 lb BMI: 22.7 Nutrition - Final Assessment Weight Mgt (Other Care) Height: 5 ft 9 in Weight:: 154 lb BMI: 22.7
[2023-04-08 08:58] VITALS: BP 174/80; BMI 22.7
== END 2023-04-26 23:59 ==
LOC: CR 14:30
PROVIDERS: PCP Internal Medicine; Referring Provider Internal Medicine Cardiovascular Disease; Visit Provider Internal Medicine Cardiovascular Disease
DX: I21.02 ST elevation (STEMI) myocardial infarction involving left anterior descending coronary artery (principal); Z95.5 Presence of coronary angioplasty implant and graft
CPT/HCPCS: 93798

== ENCOUNTER 2023-05-25 14:30 | Outpatient (RCR) | payer MEDICARE, SELFPAY ==
[2023-04-08 08:58] VITALS: BMI 22.7
[2023-04-27 00:43] VITALS: BP 174/80
--- NOTE | 2023-05-09 08:20 | CR.ITP_ITS ---
Nutrition - Initial Assessment Weight Mgt (Other Care) Height: 5 ft 9 in Weight:: 154 lb BMI: 22.7 Psychosocial - Initial Assess Target Goals Target Goals Patient Health Questionnaire PHQ-9 Screening 60-Day Re-eval Assessment: 1. Little interest or pleasure in doing things: Not at all 2. Feeling down, depressed, or hopeless: Not at all 3. Trouble falling or staying asleep, or sleeping too much: Not at all 4. Feeling tired or having little energy: Nearly every day 5. Poor appetite or overeating: More than half the days 6. Feeling bad about yourself -- or that you are a failure or have let yourself or your family down: Not at all 7. Trouble concentrating on things, such as reading the newspaper or watching television: Not at all 8. Moving or speaking so slowly that other people could have noticed. Or the opposite - being so fidgety or restless that you have been moving around a lot more than usual: Not at all 9. Thoughts that you would be better off , or of hurting yourself in some way: Not at all How difficult have these problems made it for you to do your work, take care of things at home, or get along with other people?: Somewhat difficult Total Score: 5 Self-Efficacy 6-Item Scale 60-Day Re-eval Assessment: We would like to know how confident you are in doing certain activities. Please select your confidence level for: Fatigue Select Number: 8 Physical Discomfort or Pain Select Number: 8 Emotional Distress Select Number: 9 Other Symptoms or Health Problems Select Number: 9 Different Tasks and Activities Select Number: 6 Medication Select Number: 9 Total Score:: 8 Nutrition Survey Nutrition Survey Instructions Scoring Instructions Exercise - 60-day Assessment Visit Date of Eval: 05/09/23 Session #:: 22 Stress Test EKG: Physician Prescribed Exercise Modalities: Treadmill Frequency: 3x/week for 12 weeks [36 sessions] Intensity: 60-80% of age predicted maximum heart rate reserve Duration: 30 - 45 minutes Current METSs:: 2.7 Target Heart Rate:: 83-103 Current RPE:: 13-14 Maximum Excercise HR:: 85 Resting Blood Pressure: 164/82 Maximum Exercise Blood Pressure: 172/82 EKG Type: NSR with rare PAC/PVC Outcomes & Goals Goals:: Verbalizes understanding of THR, RPE & goal METS by session 6, Documents in home exercise log/reports 30 min aerobic 5 day/wk by DC, Demonstrates accurate pulse taking by DC and Other additional outcome/goals: see below Intervention & Plan Exercise Program Goals: Instruct on personal THR & RPE, Instruct on MET level & personal MET goal, Show patient to take own pulse /validate performance until accurate, Instruct on home exercise and Other additional plan/int 30-day Reassessments 30 day Reassessments:: Progressing Reassessment Notes & Comments:: THR explained Physical Activity Home Exercise Physical Activity - Home Exercise: Safe Exercise, Warm-up, Self-monitoring, Cool-Down, Home Exercise > 30 min Daily and Sitting Time <3 hours/daily Outcomes & Goals Outcomes/Goals: Demonstrates correct Warm-up/exercise Cool-Down (S3) if = 2.5 METs, Verbalizes symptoms of exercise intolerance by Session 3 (S3), Demonstrate safe equipment use (S3) & follows exercise prescrition (6) and Other: See below Intervention & Plan Plan/Intervention: Instruct warm-up & cool-down if exercising at > 2 METs, Instruct on symptoms of exercise intolerance & actions to take, Instruct & monitor on saf, Assess intial functional capacity & safety risk and Other See below 30-day Reassessments 30 day Reassessments:: Progressing Reassessment Notes & Comments:: cool down encouraged Nutrition - 30-Day Assessment Weight Mgt (Other Care) Height: 5 ft 9 in Weight:: 154 lb BMI: 22.7 Nutrition - 60-Day Assessment Program Goals Nutrition Program Goals Patient has diagnosis of Hyperlipidemia (ICD E78)?: Yes Visit Date of Eval: 05/09/23 Session #:: 22 Cholesterol/Lipids (Other Core Measures) Determine presence & major risk factors that modify LDL goal: Hypertension or hypertensive medication, Low HDL cholesterol <40 mg/dL*, Family history of premature CHD in Male < 55 years: female <65 yearsFa and Age men > 45 years; women >/= 55 years Outcomes/Goals: Pt IDs own risk factors & lifestyle modifications by Session 10, Verbalizes symptoms of angina & response by session 3., Pt independently manages and Other Additional Outcomes/Goals: Intervention/Plan: Advocate for lipid panel cholesterol medication if applicable, Instruct on personal lipid levels & lipid goals/NCEP guidelines, Instruct on cholesterol and Other additional plan/int 30-day Reassessments:: Met Reassessment Notes & Comments:: Diabetes (Other Core Measures) Diabetes Type: Not Applicable Weight Mgt (Other Care) Height: 5 ft 9 in Weight:: 154 lb BMI: 22.7 Diagnosis Overweight/Obesity BMI> 30% ICD-10 E66: No Diagnosis High BMI/Morbid Obesity BMI> 35% ICD-10 Z68: No Outcomes/Goals: Pt sets, maintains & shows weight loss goal & trend during rehab and Other additional outcomes/goals Intervention/Plan: Instruct on ideal BMI & set weight loss goal w/patient, Assist pt to ID & incorporate diet changes for weight loss by S9, Refer to Structured Weight Loss program as appropriate, Encourage goal of using 250- 300dcal per session for weight loss and Other additional plan/interventions 30 day Reassessments:: Met Healthy Eating Habits Will attend diet classes:: Yes Outcomes/Goals:: Consume diet rich in vegs,fruits,whole grain/high f iber,fish,lean meat, Limit sat/trans fats,cholesterol & added salts & sugars and Other additional outcome/goals: Intervention/Plan:: Assess current eating habits and Other Additional plan/interventions 30-day Reassessments:: Met Education Gave educational materials for:: Signs & symptoms of hypoglycemia, Signs & symptoms of hyperglycemia, Relate diabetes to coronary artery disease and Healthy eating Core - 60-Day Assessment Visit Date of Eval: 05/09/23 Session #:: 22 Medication Compliance Preventative Medication(s):: Aspirin, Clopidogrel/P2Y12 inhibit, Statin/lipid, Beta freddie and ARB (Angiotensi Rcap) H/O mental health issues: depression, anxiety, or addiction?: No Doesn?t believe in the benefits of treatment?: No Believes medications are unnecessary or harmful?: No Has a concern about medication side effects?: No Expresses concern over the cost of medications?: No Outcomes/Goals: Verbalizes medications,desired effect & common side effects @ DC, Pt self-reports following medication regimen, Keeps card in wallet w/medications listed by DC and Other additional outcome/goals: Interventions/plans: Instruct on medication effects & side effects, Review medication list w/patient every two weeks, Instruct importance of taking meds as ordered & assist problem solving and Other additional 30-day Reassessments:: Met Tobacco Use Tobacco Use: Non-smoker Hypertension Hypertension Diagnosis:: Hypertension ICD-10 I10 Resting Blood Pressure:: 164/82 [place] [employer] Hypertension Guidelines Peak Exercise Blood Pressure:: 172/82 Outcomes/Goals: Able to verbalize/achieve optimal blood pressure <130/80, Incorporates diet changes & exercise for blood pressure control by DC and Other additional outcomes/goals Interventions/plan: Instruct on optimal blood pressure, hypertension & medications, Instruct on effects of sodium, alcohol, stress, exercise &hypertension and Other additional plan/interventions 30 day Reassessments:: Progressing Reassessment Notes & Comments:: BP's are improving Tobacco Cessation Referral Smoking Cessation Referral:: No Individual Education/Counseling:: No Education Schedule Given:: Yes Psychosocial - 30-Day Assess Target Goals Target Goals Psychosocial - 60-Day Assess VIsit Date of Eval: 05/09/23 Session #:: 22 History of previous Mental disease:: No Target Goals Target Goals Psychosocial - 90-Day Assess Target Goals Target Goals Psychosocial - Final Assessmen Target Goals Target Goals Nutrition - 90-Day Assessment Weight Mgt (Other Care) Height: 5 ft 9 in Weight:: 154 lb BMI: 22.7 Nutrition - Final Assessment Weight Mgt (Other Care) Height: 5 ft 9 in Weight:: 154 lb BMI: 22.7
[2023-05-09 08:29] VITALS: BP 164/82; BMI 22.7
== END 2023-05-26 23:59 ==
LOC: CR 14:30
PROVIDERS: PCP Internal Medicine; Referring Provider Internal Medicine Cardiovascular Disease; Visit Provider Internal Medicine Cardiovascular Disease
DX: I21.02 ST elevation (STEMI) myocardial infarction involving left anterior descending coronary artery (principal); Z95.5 Presence of coronary angioplasty implant and graft
CPT/HCPCS: 93798

== ENCOUNTER → 2023-06-06 | Outpatient (CLI) | payer MEDICARE, SELFPAY ==
[2023-05-09 08:29] VITALS: BMI 22.7
[2023-06-06 12:02] LABS: AST(SGOT) 26 U/L (15-37); Alanine Aminotransfer ALT/SGPT 32 U/L (16-61); Albumin, Serum 3.7 g/dL (3.2-5.0); Alkaline Phosphatase 61 U/L (45-117); Bilirubin, Direct 0.25 mg/dL (0.00-0.30); Cholesterol 159 mg/dL (200); Globulin 4.5 g/dL (2.2-4.2); High Density Lipoprotein 56 mg/dL; Protein, Total 8.2 g/dL (6.4-8.2); Triglycerides 109 mg/dL; Very Low Density Lipoprotein 22 mg/dL (5-40)
== END | disposition home or self-care (01) ==
PROVIDERS: PCP Internal Medicine; Referring Provider Nurse Practitioner Family; Visit Provider Nurse Practitioner Family
DX: E78.2 Mixed hyperlipidemia (principal)
CPT/HCPCS: 36415; 80061; 80076

== ENCOUNTER 2023-06-15 09:00 | Outpatient (RCR) | payer MEDICARE, SELFPAY ==
[2023-05-09 08:29] VITALS: BMI 22.7
[2023-05-27 00:44] VITALS: BP 164/82; BP 174/80
--- NOTE | 2023-06-08 11:07 | CR.ITP_ITS ---
Psychosocial - Initial Assess Target Goals Target Goals Patient Health Questionnaire PHQ-9 Screening 90-Day Re-eval Assessment: 1. Little interest or pleasure in doing things: Not at all 2. Feeling down, depressed, or hopeless: Not at all 3. Trouble falling or staying asleep, or sleeping too much: Not at all 4. Feeling tired or having little energy: Nearly every day 5. Poor appetite or overeating: Nearly every day 6. Feeling bad about yourself -- or that you are a failure or have let yourself or your family down: More than half the days 7. Trouble concentrating on things, such as reading the newspaper or watching television: Not at all 8. Moving or speaking so slowly that other people could have noticed. Or the opposite - being so fidgety or restless that you have been moving around a lot more than usual: Not at all 9. Thoughts that you would be better off , or of hurting yourself in some way: Not at all How difficult have these problems made it for you to do your work, take care of things at home, or get along with other people?: Somewhat difficult Total Score: 8 Self-Efficacy 6-Item Scale 90-Day Re-eval Assessment: We would like to know how confident you are in doing certain activities. Please select your confidence level for: Fatigue Select Number: 8 Physical Discomfort or Pain Select Number: 8 Emotional Distress Select Number: 9 Other Symptoms or Health Problems Select Number: 9 Different Tasks and Activities Select Number: 6 Medication Select Number: 9 Total Score:: 8 Nutrition Survey Nutrition Survey Instructions Scoring Instructions Exercise - 90-day Assessment Visit Date of Eval: 06/08/23 Session #:: 34 Physician Prescribed Exercise Modalities: Treadmill Frequency: 3x/week for 12 weeks [36 sessions] Intensity: 60-80% of age predicted maximum heart rate reserve Duration: 30 - 45 minutes Current METSs:: 3.5 Target Heart Rate:: 83-103 Current RPE:: 13-14 Maximum Excercise HR:: 99 Resting Blood Pressure: 142/84 Maximum Exercise Blood Pressure: 170/78 EKG Type: NSR with rare PVC's and PAC's. One atrial triplet. Outcomes & Goals Goals:: Verbalizes understanding of THR, RPE & goal METS by session 6, Documents in home exercise log/reports 30 min aerobic 5 day/wk by DC, Demonstrates accurate pulse taking by DC and Other additional outcome/goals: see below Intervention & Plan Exercise Program Goals: Instruct on personal THR & RPE, Instruct on MET level & personal MET goal, Show patient to take own pulse /validate performance until accurate, Instruct on home exercise and Other additional plan/int 30-day Reassessments 30 day Reassessments:: Met Physical Activity Home Exercise Physical Activity - Home Exercise: Safe Exercise, Warm-up, Self-monitoring, Fixing Carpenter l-Down, Home Exercise > 30 min Daily and Sitting Time <3 hours/daily Intervention & Plan Plan/Intervention: Instruct warm-up & cool-down if exercising at > 2 METs, Instruct on symptoms of exercise intolerance & actions to take, Instruct & monitor on saf, Assess intial functional capacity & safety risk and Other See below 30-day Reassessments 30 day Reassessments:: Met Core - 90 Day Assessment Visit Date of Eval: 06/08/23 Medication Compliance Preventative Medication(s):: Aspirin, Clopidogrel/P2Y12 inhibit, Statin/lipid, Eliquis and ARB (Angiotensi Rcap) H/O mental health issues: depression, anxiety, or addiction?: No Doesn?t believe in the benefits of treatment?: No Believes medications are unnecessary or harmful?: No Has a concern about medication side effects?: No Expresses concern over the cost of medications?: No Outcomes/Goals: Verbalizes medications,desired effect & common side effects @ DC, Pt self-reports following medication regimen, Keeps card in wallet w/medications listed by DC and Other additional outcome/goals: Interventions/plans: Instruct on medication effects & side effects, Review medication list w/patient every two weeks, Instruct importance of taking meds as ordered & assist problem solving and Other additional Tobacco Use Tobacco Use: Non-smoker 30-day Reassessments:: Met Hypertension Hypertension Diagnosis:: Hypertension ICD-10 I10 Resting Blood Pressure:: 142/84 [place] [employer] Hypertension Guidelines Peak Exercise Blood Pressure:: 170/78 Outcomes/Goals: Able to verbalize/achieve optimal blood pressure <130/80, Incorporates diet changes & exercise for blood pressure control by DC and Other additional outcomes/goals Interventions/plan: Instruct on optimal blood pressure, hypertension & medications, Instruct on effects of sodium, alcohol, stress, exercise &hypertension and Other additional plan/interventions Tobacco Cessation Referral Smoking Cessation Referral:: No Individual Education/Counseling:: No Education Schedule Given:: Yes Psychosocial - 30-Day Assess Target Goals Target Goals Psychosocial - 60-Day Assess Target Goals Target Goals Psychosocial - 90-Day Assess VIsit Date of Eval: 06/08/23 Session #:: 34 History of previous Mental disease:: No Target Goals Target Goals Psychosocial - Final Assessmen Target Goals Target Goals Nutrition - 90-Day Assessment Program Goals Nutrition Program Goals Patient has diagnosis of Hyperlipidemia (ICD E78)?: Yes Visit Date of Eval: 06/08/23 Session #:: 34 Cholesterol/Lipids (Other Core Measures) Determine presence & major risk factors that modify LDL goal: Cigarette smoking, Hypertension or hypertensive medication, Low HDL cholesterol <40 mg/dL*, Family history of premature CHD in Male < 55 years: female <65 yearsFa and Age men > 45 years; women >/= 55 years Intervention/Plan: Advocate for lipid panel cholesterol medication if applicable, Instruct on personal lipid levels & lipid goals/NCEP guidelines, Instruct on cholesterol and Other additional plan/int 30-day Reassessments:: Met
[2023-06-08 11:19] VITALS: BP 142/84
== END 2023-06-26 23:59 ==
LOC: CR 09:00
PROVIDERS: PCP Internal Medicine; Referring Provider Internal Medicine Cardiovascular Disease; Visit Provider Internal Medicine Cardiovascular Disease
DX: I21.02 ST elevation (STEMI) myocardial infarction involving left anterior descending coronary artery (principal); Z95.5 Presence of coronary angioplasty implant and graft
CPT/HCPCS: 93798

== ENCOUNTER → 2023-09-06 | Outpatient (CLI) | payer MEDICARE, SELFPAY ==
[2023-05-09 08:29] VITALS: BMI 22.7
--- NOTE | 2023-09-06 16:14 | ECHOL_ITS ---
Version 2 Reason For Study: ISCHEMIC CARDIOMYOPATHY Procedure This was a limited 2D transthoracic echocardiogram. Myocardial strain analysis was performed in this exam to aid in the assessment of cardiac function. Exam performed in department. Left Ventricle Normal left ventricle. Left ventricular systolic function is normal. The estimated ejection fraction is 60 %. No regional wall motion abnormalities noted. Right Ventricle Normal RV size. Normal systolic function. Atria Normal left atrium. Normal right atrium. Tricuspid Valve Normal tricuspid valve. Mild tricuspid valve insufficiency. Pulmonary artery systolic pressure is 26 mmHg. Aortic Valve Trisinus/trileaflet aortic valve. Peak aortic valve gradient 20 mmHg. Mean aortic valve gradient 10 mmHg. Great Vessels Normal aortic root. Pericardium/Pleural No pericardial effusion. MMode/2D Measurements & Calculations LVIDd: 4.7 cm IVSd: 0.92 cm LVOT diam: 2.1 cm LVIDs: 3.3 cm LVPWd: 1.0 cm LVOT area: 3.4 cm2 FS: 30.6 % SV(MOD-sp4): 67.7 ml SV(sp4-el): 73.0 ml LVAd ap4: 34.1 cm2 LVLd ap4: 7.9 cm EDV(MOD-sp4): 118.3 ml EDV(sp4-el): 124.5 ml LVAs ap4: 20.1 cm2 LVLs ap4: 6.7 cm ESV(MOD-sp4): 50.6 ml ESV(sp4-el): 51.6 ml EF(MOD-sp4): 57.2 % EF(sp4-el): 58.6 % Doppler Measurements & Calculations Ao V2 max: 226.7 cm/sec LV V1 max: 104.6 cm/sec SV(LVOT): 86.4 ml Ao max P.5 mmHg LV V1 max P.4 mmHg Ao V2 mean: 147.5 cm/sec LV V1 mean P.1 mmHg Ao mean P.2 mmHg LV V1 mean: 66.8 cm/sec Ao V2 VTI: 50.0 cm LV V1 VTI: 25.4 cm AV (velocity ratio): 0.51 MALLIKA(I,D): 1.7 cm2 MALLIKA(V,D): 1.6 cm2 TR max job: 236.8 cm/sec TR max P.4 mmHg ECHO/Echo, Limited Study Interpretation Summary Normal left ventricle. Left ventricular systolic function is normal. The estimated ejection fraction is 60 %. The global longitudinal strain is normal. The global longitudinal strain = -18. 7 % (normal). Compared to previous study, the left ventricular systolic function has improved .. Ordering Physician: Alexey Gibson/Nicanor Mojica Referring Physician: Alexey Gibson Performed By: Elke Gonzalez RDCS
== END | disposition home or self-care (01) ==
LOC: CVS 13:47
PROVIDERS: PCP Internal Medicine; Referring Provider Nurse Practitioner Family; Visit Provider Nurse Practitioner Family
DX: I25.5 Ischemic cardiomyopathy (principal); I50.9 Heart failure, unspecified; I11.0 Hypertensive heart disease with heart failure; I35.0 Nonrheumatic aortic (valve) stenosis
CPT/HCPCS: 93308